=== PATIENT | male | born 1955 | race Caucasian/White ===

== ENCOUNTER 2018-11-10 13:53 | Outpatient (RCR) | payer MEDICARE, OTHER, SELFPAY ==
[2018-11-10 14:24] VITALS: BP 118/70; PULSE 74; RESP 18; TEMP 37.4; BMI 45.1
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
== END 2018-11-10 23:59 ==
LOC: WC 13:53
PROVIDERS: Family Provider Nurse Practitioner Family; PCP Nurse Practitioner Family; Visit Provider Nurse Practitioner Family
DX: S50.811A Abrasion of right forearm, initial encounter (principal); S40.021A Contusion of right upper arm, initial encounter; S47.1XXA Crushing injury of right shoulder and upper arm, initial encounter; V89.9XXA Person injured in unspecified vehicle accident, initial encounter; I10 Essential (primary) hypertension; N31.9 Neuromuscular dysfunction of bladder, unspecified; M54.16 Radiculopathy, lumbar region; I51.9 Heart disease, unspecified; N40.1 Benign prostatic hyperplasia with lower urinary tract symptoms; R33.9 Retention of urine, unspecified; F17.210 Nicotine dependence, cigarettes, uncomplicated
CPT/HCPCS: 11042; 11045; 99203; G0463

== ENCOUNTER 2018-11-11 09:39 | Observation (INO) | payer MEDICARE, SELFPAY ==
[2018-11-10 14:24] VITALS: BMI 45.1
[2018-11-11] VITALS (9 sets, daily range): BP systolic 98–120; BP diastolic 57–81; PULSE 62–82; RESP 16–18; TEMP 36.4–36.8; O2SAT 73–98; BMI 45.7
--- NOTE | 2018-11-11 09:27 | CT_ITS ---
STUDY: CT RIGHT UPPER EXTREMITY / HUMERUS REASON FOR EXAM: Male, 63 years old. Trauma to the distal right humerus with persistent hematoma. RADIATION DOSAGE (If Supplied By Facility): CTDIvol = ( 26.04 ) mGy, DLP = ( 1108.22 ) mGycm TECHNIQUE: High resolution transaxial imaging was performed without the administration of intravenous contrast material. Multiplanar coronal and sagittal images were reformatted. Individualized dose optimization techniques were used for this CT. COMPARISON: None. FINDINGS: Diffuse subcutaneous soft tissue swelling overlying the posterior aspect of the distal humerus and olecranon process. This extends medially. There is evidence of a focal hematoma measuring 6.5 cm x 3.4 cm. This extends into the medial aspect of the distal arm. There is evidence of overlying soft tissue injury and possible ulceration measuring 2.7 cm. Normal visualized muscles. Normal visualized neurovascular bundles. Normal humerus. CT/Extremity Upper without Contra IMPRESSION: Findings suggestive of a large hematoma overlying the distal humerus and olecranon process with evidence of a soft tissue laceration and/or ulceration as described. Electronically Signed: Toy Cordero, at 11:30 EDT , Service support ,
--- NOTE | 2018-11-11 09:49 | EKG12_ITS ---
Test Reason : PRE-OP Blood Pressure : / mmHG Vent. Rate : 068 BPM Atrial Rate : 068 BPM P-R Int : 170 ms QRS Dur : 124 ms QT Int : 410 ms P-R-T Axes : 036 -60 018 degrees QTc Int : 435 ms Normal sinus rhythm Left anterior fascicular block Abnormal ECG When compared with ECG of 30-DEC-2000 13:08, QRS duration has increased Confirmed by THANH ACHARYA ([id number]), order editor MARIAA THOMAS ([id number]) on 11/16/2018 2:41:40 PM Referred By: Renato White Confirmed By:VALERIA ACHARYA
--- NOTE | 2018-11-11 09:50 | RAD_ITS ---
STUDY: X-RAY CHEST REASON FOR EXAM: Male, 63 years old. Necrotic hematoma. TECHNIQUE: Single AP portable view of the chest. COMPARISON: None. FINDINGS: Mild increased linear markings at the lung bases slightly more prominent on the left side suggestive of a bibasilar atelectasis. Blunting of the left costophrenic angle. Normal size heart. Normal mediastinum and oralia. Normal visualized pulmonary arteries. There is atherosclerotic calcification of the aortic arch with tortuosity. Prior debbie and screw fixation of the mid thoracic to lower thoracic level. Normal visualized ribs, clavicles, and shoulders. There is no demonstrated abnormality of the visualized soft tissue structures of the upper abdomen. RAD/Chest 1 View (Portable) IMPRESSION: Mild increased linear markings at the lung bases slightly more prominent on the left side with blunting of the left costophrenic angle. Electronically Signed: Toy Cordero, at 15:38 EDT , Service support ,
[2018-11-11 10:23] LABS: Absolute Lymphocyte Count 1.12 X10^3/ul (0.83-4.51); Absolute Neutrophil Count 6.3 X10^3/uL (2.0-7.7); Basophil# 0.03 X10^3/uL; Basophil% 0.3 % (0-1); Eosinophil# 0.28 X10^3/uL; Eosinophils% 3.3 % (0-5); Hematocrit 41.4 % (40-54); Hemoglobin 14.1 g/dl (13.0-16.5); Lymphocyte # 1.12 X10^3/ul (4.0); Mean Corp Hgb Conc 34.1 g/gl (32-36); Mean Corpuscular Hgb 30.7 pg (27.0-32.0); Mean Corpuscular Volume 90.2 fL (80-94); Mean Platelet Vol. 10.4 fl (6.2-12.0); Monocyte# 0.82 X10^3/uL; Monocyte% 9.5 % (0-10); Neutrophil # 6.32 X10^3/uL (2.7-7.7); Neutrophil % 73.7 % (47-70); Platelet Count 187 K/mm3 (150-450); RBC Distribution Width CV 13.5 % (11.6-14.6); RBC Distribution Width SD 43.9 fl (35.1-43.9); Red Blood Count 4.59 M/mm3 (4.6-6.2); White Blood Count 8.6 K/mm3 (4.4-11.0)
[2018-11-11 10:24] LABS: POSITIVE COUNT NO; POSITIVE DIFFERENTIAL NO; POSITIVE MORPHOLOGY NO
--- NOTE | 2018-11-11 10:27 | NURSING ---
wallet, check book, and keys with knife sent to be locked up.
[2018-11-11 10:30] LABS: Prothrombin Time (Protime)PT. 12.5 SECONDS (11.7-14.9)
[2018-11-11 10:37] LABS: ALB/GLOB Ratio 1.1 RATIO (0.9-2.4); AST(SGOT) 14 U/L (15-37); Alanine Aminotransfer ALT/SGPT 18 U/L (16-61); Albumin, Serum 3.4 g/dL (3.2-5.0); Alkaline Phosphatase 98 U/L (45-117); Anion Gap 4 (5-15); BUN 21 mg/dL (7-18); BUN/Creat Ratio 16.3 RATIO (10-20); Calcium,Total 8.4 mg/dL (8.5-10.1); Chloride 112 mmol/L (98-107); Creatinine, Serum 1.29 mg/dL (0.70-1.30); EST Glomerular Filtration Rate 60 mL/min (>60); Est Glom Filt Rate - Afr Amer 72 mL/min (>60); Estimated Creatinine Clearance 50.99 ml/min; Globulin 3.1 g/dL (2.2-4.2); Glucose 96 mg/dL (74-106); Prealbumin 28.9 mg/dL (20.0-40.0); Protein, Total 6.5 g/dL (6.4-8.2); Sodium Level 144 mmol/L (136-145)
--- NOTE | 2018-11-11 10:51 | NURSING ---
pt to ct scan
[2018-11-11] MEDS: Lactated Ringers 1,000 ML 60 ML IV ×2 (11:10→18:07)
--- NOTE | 2018-11-11 11:17 | NURSING ---
pt returned to room from ct scan
--- NOTE | 2018-11-11 13:06 | NURSING ---
pt straight cath for 1000cc urine. hcg bath completed. pt left for surgery. called report to ac
--- NOTE | 2018-11-11 14:00 | THRO_PTH ---
PATIENT: ANNIE MCNEAL LOC: [facility]2 U#:[id number] AGE/SX: 63/M [place] [facility] [place]11/11/[address]: Dr. Renato White MD : 1955 BED: 1 DIS: 11/12/2018 SPEC #: [id number] RECD: 11/11/18 16:17 STATUS: JOSE DE JESUS RESam #: [id number] GEOFFREY: 11/11/18 14:[address]: Renato White DEPT: SURGICAL PATHOLOGY RECD BY: Escobar Dempsey ENTERED: 11/12/18 11:17 SP TYPE: THROMBUS OTHR DR: LIVIER De Leon Tissues: Right arm (tissue only) Procedures: Surgery Specimen Level III HEADER OPERATION: Surgical preparation right medial arm with incision and drainage PRE-OP DIAGNOSIS: Traumatic hematoma right arm TISSUE SUBMITTED: Necrotic hematoma right arm MICROSCOPIC DIAGNOSIS Necrotic hematoma: Pieces of skin and underlying tissue with focal ulceration, fat necrosis and granulation tissue reaction and blood clots, consistent with hematoma. NAIN:ayden 11/13/18 MICROSCOPIC DESCRIPTION Slides are reviewed. GROSS DESCRIPTION Received in fixative is one container labeled with the patient's name and designated necrotic hematoma. The specimen consists of multiple variable sized pieces of skin with underlying tissue that in aggregate measure 12 x 9 x 3 cm. A focal area of ulceration is noted. The deeper surface shows multiple blood clots. Also present in the container are multiple blood clots measuring in aggregate 9 x 7 x 3 cm. No mass lesion is identified. Medical Van Driver sections are submitted in two cassettes. / NAIN:ayden 11/12/18 TC:5 CPT: 42706
[2018-11-11] MEDS: levoFLOXacin IV 500 MG/100 ML BAG 100 MG IV (14:45)
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
[2018-11-11] MEDS: Gabapentin 400 MG Capsule 800 MG PO (16:29)
[2018-11-11] MEDS: Docusate Sodium 100 MG Capsule PO (21:45)
[2018-11-12 02:35] VITALS: BP 125/77; PULSE 66; RESP 16; TEMP 36.4; O2SAT 98
[2018-11-12 05:51] LABS: Hematocrit 39.3 % (40-54); Hemoglobin 13.3 g/dl (13.0-16.5); Mean Corp Hgb Conc 33.8 g/gl (32-36); Mean Corpuscular Hgb 30.6 pg (27.0-32.0); Mean Corpuscular Volume 90.3 fL (80-94); Mean Platelet Vol. 10.3 fl (6.2-12.0); Platelet Count 173 K/mm3 (150-450); RBC Distribution Width CV 13.2 % (11.6-14.6); RBC Distribution Width SD 43.7 fl (35.1-43.9); Red Blood Count 4.35 M/mm3 (4.6-6.2); White Blood Count 7.5 K/mm3 (4.4-11.0)
[2018-11-12 05:56] LABS: Scan Indicated on CBC? Y/N NO
[2018-11-12 06:09] LABS: Anion Gap 6 (5-15); BUN 21 mg/dL (7-18); BUN/Creat Ratio 19.1 RATIO (10-20); Calcium,Total 8.5 mg/dL (8.5-10.1); Chloride 110 mmol/L (98-107); EST Glomerular Filtration Rate 72 mL/min (>60); Est Glom Filt Rate - Afr Amer 87 mL/min (>60); Estimated Creatinine Clearance 59.79 ml/min; Glucose 97 mg/dL (74-106); Potassium 4.3 mmol/L (3.5-5.1); Sodium Level 143 mmol/L (136-145)
[2018-11-12 07:59] VITALS: BP 121/76; PULSE 58; RESP 18; TEMP 36.6; O2SAT 100
[2018-11-12] MEDS: Gabapentin 400 MG Capsule 800 MG PO ×2 (08:02→11:44)
[2018-11-12] MEDS: Furosemide 40 MG Tablet PO (08:02)
[2018-11-12] MEDS: Montelukast 10 MG Tablet PO (08:03)
[2018-11-12] MEDS: Finasteride 5 MG Tablet PO (08:03)
[2018-11-12] MEDS: Venlafaxine XR 37.5 MG Capsule PO (08:04)
[2018-11-12] MEDS: Tamsulosin HCl 0.4 MG Capsule PO (08:04)
[2018-11-12 09:22] VITALS: PULSE 58
[2018-11-12] MEDS: levoFLOXacin IV 500 MG/100 ML BAG 100 MG IV (09:33)
--- NOTE | 2018-11-12 09:52 | NURSING ---
This RN spoke with Caryn LEA CM regarding need for wound vac. Notified that pt will probably be here another day--- but will depend on insurance. States pt will also need HH and that will take awhile as well. Will continue to monitor.
--- NOTE | 2018-11-12 10:05 | CASEMGMT ---
JOSEPH CARTY Note: pt to dc with wound vac. Call to [facility] [phone]- his voicemail was full. Call to Franklyn Reyes form [facility] [phone] who will email prescription form. Requested clinical information to be faxed to [facility] @ [phone] and JOSEPH CARTY will expect call back from [facility] when he is able to process. Need Dr. White to sign prescription form prior to processing [facility] wound vac.
--- NOTE | 2018-11-12 10:43 | CASEMGMT ---
Addendum entered by Jan Geiger 11/12/18 11:34: [facility] PH: FX: Original Note: Addendum entered by Jan Geiger 11/12/18 11:26: Wound vac script has [facility] listed as Home care provider. This company is not [facility] with pt's insurance. Call to [facility] to notify and they have not received referral for this pt. -Insurance check for [facility] providers reviewed with pt: [facility] in [place] is preference. call to Vaishali who states they can accept pt. Referral faxed to them with start of care listed as Friday, November 14. Katja CHRISTOPHER Original Note: JSOEPH CARTY Note: On gathering clinical information, wound vac prescription form was found in front of chart completed, but not signed. Call received from [facility] who found pt's [facility] referral has already been received and insurance reviewed. Script needs signed and faxed to [facility] Pena @ [phone] White signs script. -JOSEPH CARTY checking insurance for home health which will need set up prior to dc. -Call to wound center to check if follow up appointment has been made, message with call back information left. Katja CHRISTOPHER
--- NOTE | 2018-11-12 12:00 | PCM.PN.SRG ---
- Physical Exam General: Alert, Oriented x3, Cooperative, No apparent distress HEENT: Atraumatic, PERRLA, Normocephalic Oral: Moist Mucosa Neck: Supple Lungs: Clear to auscultation, Normal air movement Cardiovascular: Regular rate, Regular Rhythm Abdomen: Bowel Sounds Present, Soft, Non Tender Extremities: Capillary Refill Less than 3 Seconds, Edema - right arm, Peripheral Pulses Normal Skin: Ulcer/ Wound - Right mediolateral arm by elbow Musculoskeletal: No Tenderness to Palpation of Joints or Extremities Neurological: Cranial nerves II-XII grossly intact, Neuro grossly intact, Muscle tone normal Psych/Mental Status: Normal Affect, Appropriate Vital Signs Temp Pulse Resp BP Pulse Ox 97.8 F 58 L 18 121/76 H 100 11/12/18 07:59 11/12/18 09:22 11/12/18 07:59 11/12/18 07:59 11/12/18 07:59 Oxygen Delivery Method Room Air Weight: 275 lb 0.003 oz Body Mass Index (BMI) 45.7 Intake and Output for Last 24 Hours 11/10/18 11/11/18 11/12/18 23:59 23:59 23:59 Intake Total 1792 / 1792 1120 / 1120 Output Total 1800 / 1800 475 / 475 Balance -8 / -8 645 / 645 Microbiology Past 72 Hours 11/11/18 15:00 Gram Stain - Final Tissue - Arm Right Laboratory Tests Past 24 Hrs 11/12/18 11/12/18 05:40 05:40 WBC 7.5 RBC 4.35 L Hgb 13.3 Hct 39.3 L MCV 90.3 MCH 30.6 MCHC 33.8 RDW 13.2 RDW Differential 43.7 Plt Count 173 MPV 10.3 Sodium 143 Potassium 4.3 Chloride 110 H Carbon Dioxide 27.0 Anion Gap 6 BUN 21 H Creatinine 1.10 Estim Creat Clear Calc 59.79 Est GFR (MDRD) Af Amer 87 Est GFR (MDRD) Non-Af 72 BUN/Creatinine Ratio 19.1 Glucose 97 Calcium 8.5 Medical Necessity - Tobacco Use Smoking Status: Current every day smoker Tobacco Use: Cigarettes Assessment/Plan All Active Problems Crushing injury of right arm (Acute) Skin necrosis (Acute) Traumatic hematoma of right upper arm (Acute) Abrasion of right forearm (Acute) Surgical preparation right posteromedial arm by elbow with incision and drainage and evacuation and excisional debridement necrotic hematoma (120 cm2). -Surgical dressing removed. -Wound looks beefy pink. No bleeding seen. -Nursing will apply wound VAC at 150 mm Hg -Pain is well controlled -Care management is arranging home health to help with wound VAC changes. -Patient will follow up Friday at the wound center -Awaiting wound cultures and pathology. -Patient currently receiving Levaquin IV. -Upon discharge his antibiotic will be changed to Clindamycin. He will also be given a probiotic to take daily. -He will be given a prescription of Percocet for pain and Valium for muscle spasm. Crushing injury of right arm -Patient has good range of motion of right arm and shoulder. He has good hand and arm strength. Abrasion of right forearm -May clean area with soap and water daily -Once he his home he can continue the collagen hydrogel to the right forearm abrasions (he has collagen hydrogel at home). Smoker Encouraged patient to stop smoking as it may have deleterious effects on wound healing.
--- NOTE | 2018-11-12 12:25 | CASEMGMT ---
RN CM Note: Script signed and faxed, call to [facility] @ [facility]. Insurance auth pending. -call to [facility], they can take pt referral with start of care Friday. Katja ALVAREZ RN ACM
--- NOTE | 2018-11-12 13:14 | CASEMGMT ---
Addendum entered by Jan Geiger 11/12/18 13:52: Fax received with rental order # [id number] for pt signature. -Serial # for home vac [id number] -Form reviewed with pt including estimated monthly cost of $230 per month rental, $25 per case and $9.75 per case for supplies for dressings and canister. -Pt signed form, copy given to him and form faxed to CLAR[employer] @ [phone]. -F/U appointment set up with [facility] for Friday, November 23, 2018 @ 1015. Pt updated and information for Home Health and appt placed on dc appointments. Original Note: Call received from Agnes [facility]FORD that home vac was approved. Form for pt signature and wound vac Serial # to be faxed. Katja BSN RN ACM
[2018-11-12 13:51] VITALS: BP 140/87; PULSE 72; RESP 18; TEMP 36.9; O2SAT 97
[2018-11-12 13:54] VITALS: PULSE 72
[2018-11-12] MEDS: Metoprolol(XL)Succ 25 MG Tablet PO (13:54)
--- NOTE | 2018-11-12 15:03 | DCINST_ITS ---
You will use the following diet at home:: No restrictions, Other - encourage nutritional supplementation with protein to help the healing process. Discharge Activity: May not drive while taking narcotic pain medications., - - elevate right arm. no heavy lifting. May shower in (days): 2 - may shower on the days the vac is changed. May resume sexual activity in: No Restrictions Weight Bearing Status: Weight bearing as tolerated Lifting Restrictions: 20 lbs. Keep extremity elevated above heart level: Right Arm Call your doctor if your incision/area has: Continuous Slow Oozing, Sudden Increased Bleeding, Increased Pain/ Swelling, Increased Redness, Foul Smelling Discharge, Swelling at the incision site Call your doctor if you observe: Fever of 101 or Higher, Coldness, Increased Pain, Shortness of breath, Chest pain, Calf discomfort, Uncontrolled pain Suture Line Care: - - vac changes three times per week at 150 mmHg continuous suction. Change Dressing in (Days):: 2 - vac changes three times per week. Cleanse incision/area with: Soap & Water - may cleanse the wound with soap and water on the days the vac is changed., - - patient may shower on the days the vac is changed. Allergies/Adverse Reactions: Allergies gadodiamide [From Omniscan] Allergy (Verified 11/11/18 09:46) Hives Penicillins [PCN] Allergy (Verified 11/11/18 09:46) Fever and skin rash Medications to take at Discharge Aspirin [Aspir 81] 1 tab PO DAILY 11/10/18 Finasteride 5 mg PO DAILY 11/10/18 Gabapentin [Neurontin] 800 mg PO TID 11/10/18 Metoprolol Succinate 25 mg PO DAILY 11/10/18 Montelukast [Singulair] 10 mg PO DAILY 11/10/18 Rosuvastatin Calcium [Crestor] 5 mg PO DAILY 11/10/18 Tamsulosin HCl [Flomax] 0.4 mg PO DAILY 11/10/18 Torsemide 20 mg PO DAILY 11/10/18 Venlafaxine HCl [Venlafaxine HCl ER] 37.5 mg PO 11/10/18 Clindamycin HCl [Cleocin] 300 mg PO TID #42 cap 11/12/18 Diazepam [Valium] 5 mg PO 4X/DAY PRN PRN 7 Days #30 tab 11/12/18 Lactobacillus Acidophilus/Fos [Acidophilus Probiotic Tablet] 1 ea PO BID #30 tab 11/12/18 Oxycodone HCl/Acetaminophen [Percocet 5/325] 1 - 2 tab PO 4X/DAY PRN PRN 7 Days #50 tab 11/12/18 The following prescriptions were given: Diazepam [Valium] 5 mg PO 4X/DAY PRN PRN 7 Days #30 tab PRN Reason: Spasms Oxycodone HCl/Acetaminophen [Percocet 5/325] 1 - 2 tab PO 4X/DAY PRN PRN 7 Days #50 tab PRN Reason: Pain Lactobacillus Acidophilus/Fos [Acidophilus Probiotic Tablet] 1 ea PO BID #30 tab Clindamycin HCl [Cleocin] 300 mg PO TID #42 cap Primary Care Physician: Ellie David NP-C [Primary Care Provider] - Test Results: Test results from this visit will be discussed in further detail at your follow- up appointment, if applicable. Please Follow Up With: Clinic,Wound - to see Isabel Vail CNP. When: Friday11/16/18. call [phone] for appt. Please Follow Up With: [facility]- they will call to set up first appt. When: Friday Proposed Discharge Date: 11/12/18
--- NOTE | 2018-11-12 15:12 | CASEMGMT ---
Addendum entered by Jan Geiger 11/12/18 16:28: Call received from [facility] that they can accept referral. Call to patient to update- message left with call back information to notify of change in Home Care for Friday. Kajta BAIG Original Note: JOSEPH CARTY Note: Call received from [facility] that they will not be able to take pt's insurance despite earlier approval of case and new C will need to be called. -JOSEPH CARTY called to John @ [facility] @ . Clinical information including insurance given. Referral faxed, awaiting approval. Will call pt regarding above when new home health is secured. [facility] PH: [phone] FX: [phone] Katja BAIG
--- NOTE | 2018-11-12 15:47 | NURSING ---
appointments sheet obtained from discharge appts- and given to pt. Notified that d/c appts were incorrect on discharge instructions- and crossed out. Notified that scheduled home health company changed mind and states that they will not accept pt insurance. JOSEPH Montoya-CM states that she will be here tomorrow and that she will follow up on this- pt notified of same and instructed to call hospital- avionics shop supervisor for wound center.
--- NOTE | 2018-11-13 10:56 | CASEMGMT ---
JOSEPH CARTY Note: Call to pt to verify he received JOSEPH CARTY message from yesterday re: Home Health change. Pt is aware- requesting to know time of RN coming. JOSEPH CARTY offered to call [facility]- per Sera, they are making schedule for tomorrow now and will call pt this afternoon. Pt given # for agency. Pt states his wound vac is functioning well at this time. No further questions. Katja ALVAREZ RN ACM
== END 2018-11-12 15:45 | disposition home health service (06) ==
PROVIDERS: Anesthesiology; Admitting Provider Surgery; Family Provider Nurse Practitioner Family; PCP Nurse Practitioner Family; Referring Provider Surgery; Visit Provider Surgery
PROC: (CPT 23930; principal; 2018-11-11 13:50)
DX: S50.01XA Contusion of right elbow, initial encounter (principal); S50.811A Abrasion of right forearm, initial encounter; S47.1XXA Crushing injury of right shoulder and upper arm, initial encounter; V48.9XXA Unspecified car occupant injured in noncollision transport accident in traffic accident, initial encounter; Y93.89 Activity, other specified; Y92.9 Unspecified place or not applicable; F17.210 Nicotine dependence, cigarettes, uncomplicated; M19.90 Unspecified osteoarthritis, unspecified site; I10 Essential (primary) hypertension; N31.9 Neuromuscular dysfunction of bladder, unspecified; N40.1 Benign prostatic hyperplasia with lower urinary tract symptoms; R33.8 Other retention of urine; I51.9 Heart disease, unspecified; Z95.5 Presence of coronary angioplasty implant and graft; Z79.899 Other long term (current) drug therapy; Z79.82 Long term (current) use of aspirin; E78.00 Pure hypercholesterolemia, unspecified
CPT/HCPCS: 23930; 36415; 71045; 73200; 80048; 80053; 84134; 85025; 85027; 85610; 87070; 87075; 87077; 87102; 87106; 87186; 87205; 87206; 88304; 93005; 96365; 96366; 96367; 99218; J7120; G0378; G0379

== ENCOUNTER 2018-11-30 10:15 | Outpatient (RCR) | payer MEDICARE, SELFPAY ==
[2018-11-11 02:00] VITALS: BP 118/70; PULSE 74; RESP 18; TEMP 37.4
[2018-11-11 13:13] VITALS: BMI 45.7
[2018-11-23 10:18] VITALS: BP 105/68; PULSE 77; RESP 18; TEMP 36.2; BMI 45.7
--- NOTE | 2018-11-23 13:06 | PCM.WC.PN ---
Type of Wound Date of Service: 11/23/18 Chief Complaint: Open surgical hematoma wound right medial arm. History of Wound: Surgery 11/11/18 - Surgical preparation right posteromedial arm by elbow with incision and drainage and evacuation and excisional debridement necrotic hematoma (120 cm2). Wound care - VAC. Operative culture - Staphylococcus epidermidis. He was placed on Cleocin. Prealbumin from 11/11/18 was 28.9. Encourage nutritional supplementation with protein to help the healing process. CT right arm from 11/11/18 showed a large hematoma overlying the distal humerus and olecranon process with evidence of a soft tissue laceration and/or ulceration.. Today he denies fever. His appetite is ok. Progress of Wound: Recent surgery 11/11/18. - Physical Exam Vital Signs Temp Pulse Resp BP 97.1 F L 77 18 105/68 11/23/18 10:18 11/23/18 10:18 11/23/18 10:18 11/23/18 10:18 Wound Measurements and Assessment WC - Nurse 1 - General Ulcer Measurement Start: 11/23/18 10:18 Freq: Status: Active Protocol: Activity Type Activity Date Activity User E-Sign Co-Sign Detail Recorded Client Recorded Date Recorded By Document 11/23/18 10:18 MW [id number] 11/23/18 10:36 MW 11/23/18 10:18 Wound Center Nurse 1 [Ulcer Assessment] #2 right lateral elbow cluster -Photo Taken No -Ulcer Cleansing soap and water #1 right inner upper arm -Combined with other wound No -Current Size (cm) - Length 12.0 -Current Size (cm) - Width 6.4 -Current Size (cm) - Depth 0.3 -Total Square Cm 76.80 -Date of Last Picture (Recall this 11/23/18 field) -Photo Taken Yes -Epithelialization Small 1-33% -Tunneling No -Undermining/Tunneling No -Circular Undermining No -Exudate Amt Medium -Exudate Type Serosanguineous -Wound Margin Flat & Intact -Granulation Amt Large (67-100%) -Granulation Quality [place] -Slough/Fibrin Yes -Necrosis Amt Small (1-33%) -Necrotic Tissue Type Adherent Slough -Structure Exposed N/A -Texture (Abigail-wound Skin Appearance) Assessed Localized Edema Scarring -Moisture (Abigail-wound Skin Appearance No Abnormality ) Assessed -Color (Baigail-wound Skin Appearance) No Abnormality Assessed -Temperature (Abigail-wound Skin No Abnormality Appearance) (Pt Warm) -Tenderness on Palpation (Abigail-wound No Skin Appearance) -Ulcer Cleansing soap and water -Foul Odor after Cleansing No -Anesthetic Used 4% Lidocaine Solution [Edema Assessment] -Lower Limb Edema Present No WC - Nurse 2 - General Ulcer CM Notes Start: 11/23/18 10:18 Freq: Status: Active Protocol: Activity Type Activity Date Activity User E-Sign Co-Sign Detail Recorded Client Recorded Date Recorded By Document 11/23/18 10:49 [id number] 11/23/18 10:51 11/23/18 10:49 Wound Center Nurse 2 [Procedure/Treatment] #2 right lateral elbow cluster -Correct Patient No -Correct Side, Site, Position No -Correct Procedure No -Procedure Performed No -Wound/Ulcer Outcome Converted #1 right inner upper arm -Time 10:49 -Correct Patient Yes -Correct Side, Site, Position Yes -Correct Procedure Yes -Procedure Performed Yes -Type of Procedure Debridement -Clinical Debridement Subcutaneous -Post Debridement Size (cm) - Length 12.0 -Post Debridement Size (cm) - Width 6.5 -Post Debridement Size (cm) - Depth 0.5 -Total Square Cm 78.00 -Wound/Ulcer Outcome Not Healed -Ulcer Cleansing Rinsed/ Irrigated with Saline -Foul Odor after Cleansing No -Bioengineered Tissue No -Bleeding Controlled with Pressure -Offloading No -Treatment Response Procedure Tolerated Well [See Physician Procedure note for Specifics] Pain Scale: 0-10 Numeric [Pain] -Is Patient Pain Free? Yes Debridement Note Post-Debridement Measurements/Treatment WC - Nurse 2 - General Ulcer CM Notes Start: 11/23/18 10:18 Freq: Status: Active Protocol: Activity Type Activity Date Activity User E-Sign Co-Sign Detail Recorded Client Recorded Date Recorded By Document 11/23/18 10:49 KP [id number] 11/23/18 10:51 11/23/18 10:49 Wound Center Nurse 2 #2 right lateral elbow cluster -Correct Patient No -Correct Side, Site, Position No -Correct Procedure No -Procedure Performed No -Wound/Ulcer Outcome Converted #1 right inner upper arm -Time 10:49 -Correct Patient Yes -Correct Side, Site, Position Yes -Correct Procedure Yes -Procedure Performed Yes -Type of Procedure Debridement -Clinical Debridement Subcutaneous -Post Debridement Size (cm) - Length 12.0 -Post Debridement Size (cm) - Width 6.5 -Post Debridement Size (cm) - Depth 0.5 -Total Square Cm 78.00 -Wound/Ulcer Outcome Not Healed -Ulcer Cleansing Rinsed/ Irrigated with Saline -Foul Odor after Cleansing No -Bioengineered Tissue No -Bleeding Controlled with Pressure -Offloading No -Treatment Response Procedure Tolerated Well Pain Scale: 0-10 Numeric Is Patient Pain Free? Yes Wound debrided: #1 Right medial arm. Laterality: Right Wound Grade/Stage: 3. Type of Debridement: Excisional debridement Anesthesia Used: 4% Lidocaine Solution Depth: Down to and including healthy tissue, in the subcutaneous layer Percentage of wound debrided: 100 Instrument Used: 5mm curette Tissue Removed: subcutaneous tissue. Severity: Fat Layer Exposed Amount of bleeding with debridement: Mild Bleeding Controlled with: Pressure Patient tolerated procedure well Assessment/Plan Assessment: 1. Traumatic necrotic hematoma right posteromedial arm by elbow. 2. Skin necrosis. 3. Open surgical hematoma wound right posteromedial arm by elbow. 4. Crushing injury right arm. 5. Abrasion right proximal lateral forearm by elbow. 6. Smoker. 7. s/p surgical preparation right posteromedial arm by elbow with incision and drainage and evacuation and excisional debridement necrotic hematoma (120 cm2). Plan: Continue the VAC. Continue Cleocin for the operative culture that showed Staphylococcus epidermidis. Prealbumin from 11/11/18 was 28.9. Encourage nutritional supplementation with protein to help the healing process. Encourage range of motion exercises to minimize stiffness. Discussed delayed closure with further operative debridement with skin grafting. He will think about it and let me know. Followup one week. Encouraged the patient to stop smoking as it may have deleterious effects on wound healing.
[2018-11-30 11:37] VITALS: BP 111/66; PULSE 63; RESP 18; TEMP 36.6; BMI 45.7
--- NOTE | 2018-11-30 20:06 | PCM.WC.PN ---
Type of Wound Date of Service: 11/30/18 Chief Complaint: Open surgical hematoma wound right posteromedial arm. History of Wound: Surgery 11/11/18 - Surgical preparation right posteromedial arm by elbow with incision and drainage and evacuation and excisional debridement necrotic hematoma (120 cm2). Wound care - VAC. Operative culture - Staphylococcus epidermidis. He was placed on Cleocin and has finished them. Prealbumin from 11/11/18 was 28.9. Encourage nutritional supplementation with protein to help the healing process. CT right arm from 11/11/18 showed a large hematoma overlying the distal humerus and olecranon process with evidence of a soft tissue laceration and/or ulceration.. Today he denies fever. His appetite is ok. Progress of Wound: Improved. - Physical Exam Vital Signs Temp Pulse Resp BP 98 F 63 18 111/66 11/30/18 11:37 11/30/18 11:37 11/30/18 11:37 11/30/18 11:37 Wound Measurements and Assessment WC - Nurse 1 - General Ulcer Measurement Start: 11/23/18 10:18 Freq: Status: Active Protocol: Activity Type Activity Date Activity User E-Sign Co-Sign Detail Recorded Client Recorded Date Recorded By Document 11/30/18 11:37 RB [id number] 11/30/18 11:39 RB 11/30/18 11:37 Wound Center Nurse 1 [Ulcer Assessment] #1 right inner upper arm -Combined with other wound No -Current Size (cm) - Length 12 -Current Size (cm) - Width 4 -Current Size (cm) - Depth 1 -Total Square Cm 48 -Tunneling No -Undermining/Tunneling Yes -Undermining/Tunneling Starts (O' 7 clock) -Undermining/Tunneling Ends (O'clock) 9 -Maximum Distance (cm) 2 -Circular Undermining No -Exudate Amt Medium -Exudate Type Serosanguineous -Wound Margin Distinct, Outline Attached -Granulation Amt Large (67-100%) -Granulation Quality Red -Slough/Fibrin Yes -Necrosis Amt Small (1-33%) -Necrotic Tissue Type Adherent Slough -Structure Exposed N/A -Texture (Abigail-wound Skin Appearance) Assessed -Moisture (Abigail-wound Skin Appearance Maceration ) -Color (Abigail-wound Skin Appearance) Assessed -Temperature (Abigail-wound Skin No Abnormality Appearance) (Pt Warm) -Tenderness on Palpation (Abigail-wound No Skin Appearance) -Ulcer Cleansing Wound Cleanser -Foul Odor after Cleansing No -Anesthetic Used 4% Lidocaine Solution - Nurse 2 - General Ulcer CM Notes Start: 11/23/18 10:18 Freq: Status: Active Protocol: Activity Type Activity Date Activity User E-Sign Co-Sign Detail Recorded Client Recorded Date Recorded By Document 11/30/18 11:53 [id number] 11/30/18 11:55 11/30/18 11:53 Wound Center Nurse 2 [Procedure/Treatment] -Time 11:54 -Correct Patient Yes -Correct Side, Site, Position Yes -Correct Procedure Yes -Procedure Performed Yes -Type of Procedure Debridement -Clinical Debridement Subcutaneous -Post Debridement Size (cm) - Length 6.5 -Post Debridement Size (cm) - Width 4.5 -Post Debridement Size (cm) - Depth 1.2 -Total Square Cm 29.25 -Wound/Ulcer Outcome Not Healed -Ulcer Cleansing Rinsed/ Irrigated with Saline -Foul Odor after Cleansing No -Bioengineered Tissue No -Bleeding Controlled with Pressure -Other undermine 9:00- 2.0cm -Offloading No -Treatment Response Procedure Tolerated Well [See Physician Procedure note for Specifics] Pain Scale: 0-10 Numeric [Pain] -Is Patient Pain Free? No Debridement Note Post-Debridement Measurements/Treatment - Nurse 2 - General Ulcer CM Notes Start: 11/23/18 10:18 Freq: Status: Active Protocol: Activity Type Activity Date Activity User E-Sign Co-Sign Detail Recorded Client Recorded Date Recorded By Document 11/23/18 10:49 [id number] 11/23/18 10:51 Document 11/30/18 11:53 [id number] 11/30/18 11:55 11/23/18 11/30/18 10:49 11:53 Wound Center Nurse 2 #2 right lateral elbow cluster -Correct Patient No -Correct Side, Site, Position No -Correct Procedure No -Procedure Performed No -Wound/Ulcer Outcome Converted #1 right inner upper arm -Time 10:49 11:54 -Correct Patient Yes Yes -Correct Side, Site, Position Yes Yes -Correct Procedure Yes Yes -Procedure Performed Yes Yes -Type of Procedure Debridement Debridement -Clinical Debridement Subcutaneous Subcutaneous -Post Debridement Size (cm) - Length 12.0 6.5 -Post Debridement Size (cm) - Width 6.5 4.5 -Post Debridement Size (cm) - Depth 0.5 1.2 -Total Square Cm 78.00 29.25 -Wound/Ulcer Outcome Not Healed Not Healed -Ulcer Cleansing Rinsed/ Rinsed/ Irrigated with Irrigated with Saline Saline -Foul Odor after Cleansing No No -Bioengineered Tissue No No -Bleeding Controlled with Pressure Pressure -Other undermine 9:00- 2.0cm -Offloading No No -Treatment Response Procedure Procedure Tolerated Well Tolerated Well Pain Scale: 0-10 Numeric Is Patient Pain Free? Yes No Wound debrided: #1 Right posteromedial arm. Laterality: Right Wound Grade/Stage: 3. Type of Debridement: Excisional debridement Anesthesia Used: 4% Lidocaine Solution Depth: Down to and including healthy tissue, in the subcutaneous layer Percentage of wound debrided: 100 Instrument Used: 5mm curette Tissue Removed: subcutaneous tissue. Severity: Fat Layer Exposed Amount of bleeding with debridement: Mild Bleeding Controlled with: Pressure Patient tolerated procedure well Assessment/Plan Assessment: 1. Traumatic necrotic hematoma right posteromedial arm by elbow. 2. Skin necrosis. 3. Open surgical hematoma wound right posteromedial arm by elbow. 4. Crushing injury right arm. 5. Abrasion right proximal lateral forearm by elbow. 6. Smoker. 7. s/p surgical preparation right posteromedial arm by elbow with incision and drainage and evacuation and excisional debridement necrotic hematoma (120 cm2). Plan: Continue the VAC. He has finished the Cleocin for the operative culture that showed Staphylococcus epidermidis. Prealbumin from 11/11/18 was 28.9. Encourage nutritional supplementation with protein to help the healing process. Encourage range of motion exercises to minimize stiffness. Discussed delayed closure with further operative debridement with skin grafting. He will think about it and let me know. Followup 2 weeks. Encouraged the patient to stop smoking as it may have deleterious effects on wound healing.
== END 2018-12-11 23:59 ==
LOC: WC 10:15
PROVIDERS: Family Provider Nurse Practitioner Family; PCP Nurse Practitioner Family; Visit Provider Nurse Practitioner Family
DX: S50.811A Abrasion of right forearm, initial encounter (principal); S40.021A Contusion of right upper arm, initial encounter; S47.1XXA Crushing injury of right shoulder and upper arm, initial encounter; V89.9XXA Person injured in unspecified vehicle accident, initial encounter; I96 Gangrene, not elsewhere classified; F17.200 Nicotine dependence, unspecified, uncomplicated
CPT/HCPCS: 11042; 11045; 97605; 97606

== ENCOUNTER 2018-12-28 10:15 | Outpatient (RCR) | payer MEDICARE, SELFPAY ==
[2018-12-12 01:14] VITALS: BP 111/66; PULSE 63; RESP 18; TEMP 36.6
[2018-12-14 11:18] VITALS: BP 132/81; PULSE 72; RESP 18; TEMP 37.2; BMI 45.7
--- NOTE | 2018-12-14 13:16 | PCM.WC.PN ---
(1) Open wound of right upper arm with complication Status: Chronic Code(s): S41.101A - Unspecified open wound of right upper arm, initial encounter (2) Crushing injury of right arm Status: Chronic Qualifiers: Encounter type: initial encounter Qualified Code(s): S47.1XXA - Crushing injury of right shoulder and upper arm, initial encounter Code(s): S47.1XXA - Crushing injury of right shoulder and upper arm, initial encounter (3) Smoker Status: Chronic Code(s): F17.200 - Nicotine dependence, unspecified, uncomplicated (4) Traumatic hematoma of right upper arm Status: Chronic Qualifiers: Encounter type: initial encounter Qualified Code(s): S40.021A - Contusion of right upper arm, initial encounter Code(s): S40.021A - Contusion of right upper arm, initial encounter Type of Wound Date of Service: 12/14/18 Chief Complaint: Open surgical hematoma wound right medial arm. History of Wound: Surgery 11/11/18 - Surgical preparation right posteromedial arm by elbow with incision and drainage and evacuation and excisional debridement necrotic hematoma (120 cm2). Wound care - VAC. Operative culture - Staphylococcus epidermidis. He was placed on Cleocin. Prealbumin from 11/11/18 was 28.9. Encourage nutritional supplementation with protein to help the healing process. CT right arm from 11/11/18 showed a large hematoma overlying the distal humerus and olecranon process with evidence of a soft tissue laceration and/or ulceration.. Today he denies fever. His appetite is ok. Progress of Wound: Improving - Physical Exam Vital Signs Temp Pulse Resp BP 98.9 F 72 18 132/81 H 12/14/18 11:18 12/14/18 11:18 12/14/18 11:18 12/14/18 11:18 General: Alert, Oriented x3, Cooperative HEENT: Atraumatic Oral: Moist Mucosa Lungs: Normal air movement Cardiovascular: Regular rate Extremities: No edema, Capillary Refill Less than 3 Seconds, Peripheral Pulses Normal Skin: Ulcer/ Wound - Right upper arm wound Wound Measurements and Assessment WC - Nurse 1 - General Ulcer Measurement Start: 12/14/18 11:18 Freq: Status: Active Protocol: Activity Type Activity Date Activity User E-Sign Co-Sign Detail Recorded Client Recorded Date Recorded By Document 12/14/18 11:18 DL [id number] 12/14/18 11:23 DL 12/14/18 11:18 Wound Center Nurse 1 [Ulcer Assessment] #2 right lateral elbow cluster -Current Size (cm) - Length 2.7 -Current Size (cm) - Width 0.6 -Current Size (cm) - Depth 0.1 -Total Square Cm 1.62 -Photo Taken No -Exudate Amt None Present -Wound Margin Distinct, Outline Attached -Granulation Amt Large (67-100%) -Granulation Quality [place] -Necrosis Amt Small (1-33%) -Necrotic Tissue Type Adherent Slough -Structure Exposed N/A -Texture (Abigail-wound Skin Appearance) Scarring -Moisture (Abigail-wound Skin Appearance No Abnormality ) -Color (Abigail-wound Skin Appearance) No Abnormality -Temperature (Abigail-wound Skin No Abnormality Appearance) (Pt Warm) -Tenderness on Palpation (Abigail-wound No Skin Appearance) -Ulcer Cleansing Rinsed/ Irrigated with Saline -Foul Odor after Cleansing No -Anesthetic Used 5% Lidocaine Gel #1 right inner upper arm -Current Size (cm) - Length 9 -Current Size (cm) - Width 2.2 -Current Size (cm) - Depth 0.1 -Total Square Cm 19.8 -Photo Taken No -Exudate Amt Small -Exudate Type Serosanguineous -Wound Margin Distinct, Outline Attached -Granulation Amt Large (67-100%) -Granulation Quality Red -Necrosis Amt Small (1-33%) -Necrotic Tissue Type Adherent Slough -Structure Exposed N/A -Texture (Abigail-wound Skin Appearance) Scarring -Moisture (Abigail-wound Skin Appearance No Abnormality ) -Color (Abigail-wound Skin Appearance) No Abnormality -Temperature (Abigail-wound Skin No Abnormality Appearance) (Pt Warm) -Tenderness on Palpation (Abigail-wound No Skin Appearance) -Ulcer Cleansing Wound Cleanser -Foul Odor after Cleansing No -Anesthetic Used 5% Lidocaine Gel WC - Nurse 2 - General Ulcer CM Notes Start: 12/14/18 11:18 Freq: Status: Active Protocol: Activity Type Activity Date Activity User E-Sign Co-Sign Detail Recorded Client Recorded Date Recorded By Document 12/14/18 11:49 AN [id number] 12/14/18 11:56 AN 12/14/18 11:49 Wound Center Nurse 2 [Procedure/Treatment] #2 right lateral elbow cluster -Time 11:53 -Correct Patient Yes -Correct Side, Site, Position Yes -Correct Procedure Yes -Procedure Performed Yes -Type of Procedure Debridement -Clinical Debridement Subcutaneous -Wound/Ulcer Outcome Not Healed -Ulcer Cleansing Rinsed/ Irrigated with Saline -Foul Odor after Cleansing No -Bioengineered Tissue No -Bleeding Controlled with Pressure -Treatment Response Procedure Tolerated Well #1 right inner upper arm -Time 11:55 -Correct Patient Yes -Correct Side, Site, Position Yes -Correct Procedure Yes -Procedure Performed Yes -Type of Procedure Debridement -Clinical Debridement Subcutaneous -Post Debridement Size (cm) - Length 10 -Post Debridement Size (cm) - Width 2.6 -Post Debridement Size (cm) - Depth 0.4 -Total Square Cm 26.0 -Wound/Ulcer Outcome Not Healed -Bleeding Controlled with Pressure -Treatment Response Procedure Tolerated Well [See Physician Procedure note for Specifics] Pain Scale: 0-10 Numeric [Pain] -Is Patient Pain Free? Yes Musculoskeletal: No Tenderness to Palpation of Joints or Extremities Neurological: Neuro grossly intact Psych/Mental Status: Normal Affect, Appropriate Debridement Note Post-Debridement Measurements/Treatment WC - Nurse 2 - General Ulcer CM Notes Start: 12/14/18 11:18 Freq: Status: Active Protocol: Activity Type Activity Date Activity User E-Sign Co-Sign Detail Recorded Client Recorded Date Recorded By Document 12/14/18 11:49 AN [id number] 12/14/18 11:56 AN 12/14/18 11:49 Wound Center Nurse 2 #2 right lateral elbow cluster -Time 11:53 -Correct Patient Yes -Correct Side, Site, Position Yes -Correct Procedure Yes -Procedure Performed Yes -Type of Procedure Debridement -Clinical Debridement Subcutaneous -Wound/Ulcer Outcome Not Healed -Ulcer Cleansing Rinsed/ Irrigated with Saline -Foul Odor after Cleansing No -Bioengineered Tissue No -Bleeding Controlled with Pressure -Treatment Response Procedure Tolerated Well #1 right inner upper arm -Time 11:55 -Correct Patient Yes -Correct Side, Site, Position Yes -Correct Procedure Yes -Procedure Performed Yes -Type of Procedure Debridement -Clinical Debridement Subcutaneous -Post Debridement Size (cm) - Length 10 -Post Debridement Size (cm) - Width 2.6 -Post Debridement Size (cm) - Depth 0.4 -Total Square Cm 26.0 -Wound/Ulcer Outcome Not Healed -Bleeding Controlled with Pressure -Treatment Response Procedure Tolerated Well Pain Scale: 0-10 Numeric Is Patient Pain Free? Yes Wound debrided: Right upper arm Type of Debridement: Excisional debridement Anesthesia Used: 4% Lidocaine Solution Depth: Down to and including healthy tissue, in the subcutaneous layer Percentage of wound debrided: 100 Instrument Used: 5mm curette Tissue Removed: Subcutaneous tissue and slough Amount of bleeding with debridement: Mild Bleeding Controlled with: Pressure Patient tolerated procedure well Assessment/Plan Assessment: 1. Traumatic necrotic hematoma right posteromedial arm by elbow. 2. Skin necrosis. 3. Open surgical hematoma wound right posteromedial arm by elbow. 4. Crushing injury right arm. 5. Abrasion right proximal lateral forearm by elbow. 6. Smoker. 7. s/p surgical preparation right posteromedial arm by elbow with incision and drainage and evacuation and excisional debridement necrotic hematoma (120 cm2). Plan: Stop the VAC. Will start Aquacel silver daily dressing changes. Continue Cleocin for the operative culture that showed Staphylococcus epidermidis. Prealbumin from 11/11/18 was 28.9. Encourage nutritional supplementation with protein to help the healing process. Encourage range of motion exercises to minimize stiffness. Discussed delayed closure with further operative debridement with skin grafting. He currently is not interested in further surgery. Followup one week. Encouraged the patient to stop smoking as it may have deleterious effects on wound healing. Code Visit [id number]
[2018-12-28 12:01] VITALS: BP 165/76; PULSE 82; RESP 18; TEMP 37.3; BMI 45.7
--- NOTE | 2018-12-28 13:07 | PCM.WC.PN ---
(1) Open wound of right upper arm with complication Status: Chronic Code(s): S41.101A - Unspecified open wound of right upper arm, initial encounter (2) Crushing injury of right arm Status: Chronic Qualifiers: Encounter type: initial encounter Qualified Code(s): S47.1XXA - Crushing injury of right shoulder and upper arm, initial encounter Code(s): S47.1XXA - Crushing injury of right shoulder and upper arm, initial encounter (3) Smoker Status: Chronic Code(s): F17.200 - Nicotine dependence, unspecified, uncomplicated (4) Traumatic hematoma of right upper arm Status: Chronic Qualifiers: Encounter type: initial encounter Qualified Code(s): S40.021A - Contusion of right upper arm, initial encounter Code(s): S40.021A - Contusion of right upper arm, initial encounter Type of Wound Date of Service: 12/28/18 Chief Complaint: Open surgical hematoma wound right medial arm. History of Wound: Surgery 11/11/18 - Surgical preparation right posteromedial arm by elbow with incision and drainage and evacuation and excisional debridement necrotic hematoma (120 cm2). Wound care -Aquacel silver daily dressing. Operative culture - Staphylococcus epidermidis. He was placed on Cleocin. Prealbumin from 11/11/18 was 28.9. Encourage nutritional supplementation with protein to help the healing process. CT right arm from 11/11/18 showed a large hematoma overlying the distal humerus and olecranon process with evidence of a soft tissue laceration and/or ulceration.. Today he denies fever. His appetite is ok. Progress of Wound: Improving - Physical Exam Vital Signs Temp Pulse Resp BP 99.1 F 82 18 165/76 H 12/28/18 12:01 12/28/18 12:01 12/28/18 12:01 12/28/18 12:01 General: Alert, Oriented x3, Cooperative HEENT: Atraumatic Oral: Moist Mucosa Lungs: Normal air movement Cardiovascular: Regular rate Extremities: No edema, Capillary Refill Less than 3 Seconds, Peripheral Pulses Normal Skin: Ulcer/ Wound - Right upper posterior arm Wound Measurements and Assessment WC - Nurse 1 - General Ulcer Measurement Start: 12/14/18 11:18 Freq: Status: Active Protocol: Activity Type Activity Date Activity User E-Sign Co-Sign Detail Recorded Client Recorded Date Recorded By Document 12/28/18 12:01 [email or web address] [id number] 12/28/18 12:10 EUGENIO 12/28/18 12:01 Wound Center Nurse 1 [Ulcer Assessment] #1 right inner upper arm -Combined with other wound No -Current Size (cm) - Length 8.0 -Current Size (cm) - Width 1.1 -Current Size (cm) - Depth 0.1 -Total Square Cm 8.80 -Photo Taken No -Epithelialization Large 67-100% -Tunneling No -Undermining/Tunneling No -Circular Undermining No -Classification - Thickness Full Thickness without Exposed Support Structure -Granulation Amt Medium (34-66%) -Granulation Quality Red -Slough/Fibrin Yes -Necrosis Amt Medium (34-66%) -Necrotic Tissue Type Adherent Slough -Structure Exposed None/Limited to Skin Breakdown -Texture (Abigail-wound Skin Appearance) Assessed Scarring -Moisture (Abigail-wound Skin Appearance Assessed ) Weeping -Color (Abigail-wound Skin Appearance) No Abnormality Assessed -Temperature (Abigail-wound Skin No Abnormality Appearance) (Pt Warm) -Tenderness on Palpation (Abigail-wound No Skin Appearance) -Ulcer Cleansing Rinsed/ Irrigated with Saline -Foul Odor after Cleansing No -Anesthetic Used 4% Lidocaine Solution WC - Nurse 2 - General Ulcer CM Notes Start: 12/14/18 11:18 Freq: Status: Active Protocol: Activity Type Activity Date Activity User E-Sign Co-Sign Detail Recorded Client Recorded Date Recorded By Document 12/28/18 12:37 KP [id number] 12/28/18 12:38 KP 12/28/18 12:37 Wound Center Nurse 2 [Procedure/Treatment] -Time 12:37 -Correct Patient Yes -Correct Side, Site, Position Yes -Correct Procedure Yes -Procedure Performed Yes -Type of Procedure Debridement -Clinical Debridement Subcutaneous -Post Debridement Size (cm) - Length 8.5 -Post Debridement Size (cm) - Width 1 -Post Debridement Size (cm) - Depth 0.2 -Total Square Cm 8.5 -Wound/Ulcer Outcome Not Healed -Ulcer Cleansing Rinsed/ Irrigated with Saline -Foul Odor after Cleansing No -Bioengineered Tissue No -Bleeding Controlled with Pressure -Offloading No -Treatment Response Procedure Tolerated Well [See Physician Procedure note for Specifics] Pain Scale: 0-10 Numeric [Pain] -Is Patient Pain Free? Yes Musculoskeletal: No Tenderness to Palpation of Joints or Extremities Neurological: Neuro grossly intact Psych/Mental Status: Normal Affect, Appropriate Debridement Note Post-Debridement Measurements/Treatment WC - Nurse 2 - General Ulcer CM Notes Start: 12/14/18 11:18 Freq: Status: Active Protocol: Activity Type Activity Date Activity User E-Sign Co-Sign Detail Recorded Client Recorded Date Recorded By Document 12/14/18 11:49 AN [id number] 12/14/18 11:56 AN Document 12/28/18 12:37 [id number] 12/28/18 12:38 JF 12/14/18 12/28/18 11:49 12:37 Wound Center Nurse 2 #2 right lateral elbow cluster -Time 11:53 -Correct Patient Yes -Correct Side, Site, Position Yes -Correct Procedure Yes -Procedure Performed Yes -Type of Procedure Debridement -Clinical Debridement Subcutaneous -Wound/Ulcer Outcome Not Healed -Ulcer Cleansing Rinsed/ Irrigated with Saline -Foul Odor after Cleansing No -Bioengineered Tissue No -Bleeding Controlled with Pressure -Treatment Response Procedure Tolerated Well #1 right inner upper arm -Time 11:55 12:37 -Correct Patient Yes Yes -Correct Side, Site, Position Yes Yes -Correct Procedure Yes Yes -Procedure Performed Yes Yes -Type of Procedure Debridement Debridement -Clinical Debridement Subcutaneous Subcutaneous -Post Debridement Size (cm) - Length 10 8.5 -Post Debridement Size (cm) - Width 2.6 1 -Post Debridement Size (cm) - Depth 0.4 0.2 -Total Square Cm 26.0 8.5 -Wound/Ulcer Outcome Not Healed Not Healed -Ulcer Cleansing Rinsed/ Irrigated with Saline -Foul Odor after Cleansing No -Bioengineered Tissue No -Bleeding Controlled with Pressure Pressure -Offloading No -Treatment Response Procedure Procedure Tolerated Well Tolerated Well Pain Scale: 0-10 Numeric Is Patient Pain Free? Yes Yes Wound debrided: Right upper arm ulcer Type of Debridement: Excisional debridement Anesthesia Used: 4% Lidocaine Solution Depth: Down to and including healthy tissue, in the subcutaneous layer Percentage of wound debrided: 100 Instrument Used: 7mm curette Tissue Removed: Subcutaneous tissue and slough Severity: Fat Layer Exposed Amount of bleeding with debridement: Mild Bleeding Controlled with: Pressure Patient tolerated procedure well Assessment/Plan Assessment: 1. Traumatic necrotic hematoma right posteromedial arm by elbow. 2. Skin necrosis. 3. Open surgical hematoma wound right posteromedial arm by elbow. 4. Crushing injury right arm. 5. Abrasion right proximal lateral forearm by elbow. 6. Smoker. 7. s/p surgical preparation right posteromedial arm by elbow with incision and drainage and evacuation and excisional debridement necrotic hematoma (120 cm2). Plan: Will continue Aquacel silver daily dressing changes. If there is too much dryness, instructed to moisten the silver with saline. Continue Cleocin for the operative culture that showed Staphylococcus epidermidis. Prealbumin from 11/11/18 was 28.9. Encourage nutritional supplementation with protein to help the healing process. Encourage range of motion exercises to minimize stiffness. Discussed delayed closure with further operative debridement with skin grafting. He currently is not interested in further surgery. Followup 2 weeks due to me but not being in town. Encouraged the patient to stop smoking as it may have deleterious effects on wound healing. Code Visit 70605
== END 2019-01-10 23:59 ==
LOC: WC 10:15
PROVIDERS: Family Provider Nurse Practitioner Family; PCP Nurse Practitioner Family; Visit Provider Nurse Practitioner Family
DX: S47.1XXA Crushing injury of right shoulder and upper arm, initial encounter (principal); S50.811A Abrasion of right forearm, initial encounter; S40.021A Contusion of right upper arm, initial encounter; V89.9XXA Person injured in unspecified vehicle accident, initial encounter; I96 Gangrene, not elsewhere classified; F17.200 Nicotine dependence, unspecified, uncomplicated
CPT/HCPCS: 11042; 11045

== ENCOUNTER 2019-02-08 09:00 | Outpatient (RCR) | payer MEDICARE, SELFPAY ==
[2019-01-11 00:50] VITALS: BP 165/76; PULSE 82; RESP 18; TEMP 37.3
[2019-01-11 10:21] VITALS: BP 147/85; PULSE 77; RESP 20; TEMP 37.5; BMI 45.7
--- NOTE | 2019-01-11 11:06 | PCM.WC.PN ---
(1) Open wound of right upper arm with complication Status: Chronic Current Visit: Yes Code(s): S41.101A - Unspecified open wound of right upper arm, initial encounter (2) Crushing injury of right arm Status: Chronic Current Visit: Yes Qualifiers: Code(s): S47.1XXA - Crushing injury of right shoulder and upper arm, initial encounter (3) Smoker Status: Chronic Current Visit: Yes Code(s): F17.200 - Nicotine dependence, unspecified, uncomplicated Type of Wound Date of Service: 01/11/19 Chief Complaint: Open surgical hematoma wound right medial arm. History of Wound: Surgery 11/11/18 - Surgical preparation right posteromedial arm by elbow with incision and drainage and evacuation and excisional debridement necrotic hematoma (120 cm2). Wound care -Aquacel silver daily dressing. Operative culture - Staphylococcus epidermidis. He was placed on Cleocin. Prealbumin from 11/11/18 was 28.9. Encourage nutritional supplementation with protein to help the healing process. CT right arm from 11/11/18 showed a large hematoma overlying the distal humerus and olecranon process with evidence of a soft tissue laceration and/or ulceration.. Today he denies fever. His appetite is ok. Progress of Wound: Improving - Physical Exam Vital Signs Temp Pulse Resp BP 99.5 F H 77 20 H 147/85 H 01/11/19 10:21 01/11/19 10:21 01/11/19 10:21 01/11/19 10:21 General: Alert, Oriented x3, Cooperative HEENT: Atraumatic Oral: Moist Mucosa Lungs: Normal air movement Cardiovascular: Regular rate Extremities: No edema, Capillary Refill Less than 3 Seconds, Peripheral Pulses Normal Skin: Ulcer/ Wound - Right upper posterior wound Wound Measurements and Assessment WC - Nurse 1 - General Ulcer Measurement Start: 01/11/19 10:21 Freq: Status: Active Protocol: Activity Type Activity Date Activity User E-Sign Co-Sign Detail Recorded Client Recorded Date Recorded By Document 01/11/19 10:21 MW [id number] 01/11/19 10:28 MW 01/11/19 10:21 Wound Center Nurse 1 [Ulcer Assessment] #1 right inner upper arm -Combined with other wound No -Current Size (cm) - Length 4.0 -Current Size (cm) - Width 0.7 -Current Size (cm) - Depth 0.1 -Total Square Cm 2.80 -Date of Last Picture (Recall this 01/11/19 field) -Photo Taken Yes -Epithelialization Medium 34-66% -Tunneling No -Undermining/Tunneling No -Circular Undermining No -Exudate Amt None Present -Exudate Type Serous -Wound Margin Flat & Intact -Granulation Amt Small (1-33%) -Granulation Quality [place] -Slough/Fibrin Yes -Necrosis Amt Medium (34-66%) -Necrotic Tissue Type Adherent Slough -Structure Exposed N/A -Texture (Abigail-wound Skin Appearance) Assessed, Scarring -Moisture (Abigail-wound Skin Appearance No Abnormality, ) Assessed -Color (Abigail-wound Skin Appearance) No Abnormality, Assessed -Temperature (Abigail-wound Skin No Abnormality Appearance) (Pt Warm) -Tenderness on Palpation (Abigail-wound No Skin Appearance) -Ulcer Cleansing Rinsed/ Irrigated with Saline -Foul Odor after Cleansing No -Anesthetic Used 5% Lidocaine Gel [Edema Assessment] -Lower Limb Edema Present No WC - Nurse 2 - General Ulcer CM Notes Start: 01/11/19 10:21 Freq: Status: Active Protocol: Activity Type Activity Date Activity User E-Sign Co-Sign Detail Recorded Client Recorded Date Recorded By Document 01/11/19 10:47 KP [id number] 01/11/19 10:49 KP 01/11/19 10:47 Wound Center Nurse 2 [Procedure/Treatment] #1 right inner upper arm -Time 10:47 -Correct Patient Yes -Correct Side, Site, Position Yes -Correct Procedure Yes -Procedure Performed Yes -Type of Procedure Debridement -Clinical Debridement Subcutaneous -Post Debridement Size (cm) - Length 4.5 -Post Debridement Size (cm) - Width 1 -Post Debridement Size (cm) - Depth 0.1 -Total Square Cm 4.5 -Wound/Ulcer Outcome Not Healed -Ulcer Cleansing Rinsed/ Irrigated with Saline -Foul Odor after Cleansing No -Bioengineered Tissue No -Bleeding Controlled with Pressure -Offloading No -Treatment Response Procedure Tolerated Well [See Physician Procedure note for Specifics] Pain Scale: 0-10 Numeric [Pain] -Is Patient Pain Free? Yes Musculoskeletal: No Tenderness to Palpation of Joints or Extremities Neurological: Neuro grossly intact Psych/Mental Status: Normal Affect, Appropriate Debridement Note Post-Debridement Measurements/Treatment WC - Nurse 2 - General Ulcer CM Notes Start: 01/11/19 10:21 Freq: Status: Active Protocol: Activity Type Activity Date Activity User E-Sign Co-Sign Detail Recorded Client Recorded Date Recorded By Document 01/11/19 10:47 KP [id number] 01/11/19 10:49 KP 01/11/19 10:47 Wound Center Nurse 2 #1 right inner upper arm -Time 10:47 -Correct Patient Yes -Correct Side, Site, Position Yes -Correct Procedure Yes -Procedure Performed Yes -Type of Procedure Debridement -Clinical Debridement Subcutaneous -Post Debridement Size (cm) - Length 4.5 -Post Debridement Size (cm) - Width 1 -Post Debridement Size (cm) - Depth 0.1 -Total Square Cm 4.5 -Wound/Ulcer Outcome Not Healed -Ulcer Cleansing Rinsed/ Irrigated with Saline -Foul Odor after Cleansing No -Bioengineered Tissue No -Bleeding Controlled with Pressure -Offloading No -Treatment Response Procedure Tolerated Well Pain Scale: 0-10 Numeric Is Patient Pain Free? Yes Wound debrided: Right posterior upper arm Laterality: Right Type of Debridement: Excisional debridement Anesthesia Used: 4% Lidocaine Solution Depth: Down to and including healthy tissue, in the subcutaneous layer Percentage of wound debrided: 100 Instrument Used: 7mm curette Tissue Removed: Subcutaneous tissue and slough Severity: Fat Layer Exposed Amount of bleeding with debridement: Mild Bleeding Controlled with: Compression and gauze Patient tolerated procedure well Assessment/Plan Active Problems Open wound of right upper arm with complication (Chronic) Crushing injury of right arm (Chronic) Smoker (Chronic) Assessment: 1. Traumatic necrotic hematoma right posteromedial arm by elbow. 2. Skin necrosis. 3. Open surgical hematoma wound right posteromedial arm by elbow. 4. Crushing injury right arm. 5. Abrasion right proximal lateral forearm by elbow. 6. Smoker. 7. s/p surgical preparation right posteromedial arm by elbow with incision and drainage and evacuation and excisional debridement necrotic hematoma (120 cm2). Plan: Will stop Aquacel silver dressing changes and switch to collagen hydrogel with adaptic daily. Continue the diflucan. Completed Cleocin for the operative culture that showed Staphylococcus epidermidis. Prealbumin from 11/11/18 was 28.9. Encourage nutritional supplementation with protein to help the healing process. Encourage range of motion exercises to minimize stiffness. Discussed delayed closure with further operative debridement with skin grafting. He currently is not interested in further surgery. Followup 1 week. Encouraged the patient to stop smoking as it may have deleterious effects on wound healing. Code Visit 06944
[2019-01-25 12:29] VITALS: BP 130/64; PULSE 63; RESP 18; TEMP 37; BMI 45.7
--- NOTE | 2019-01-25 13:17 | PN.PCM_ITS ---
(1) Open wound of right upper arm with complication Status: Chronic Current Visit: Yes Code(s): S41.101A - Unspecified open wound of right upper arm, initial encounter (2) Crushing injury of right arm Status: Chronic Current Visit: Yes Qualifiers: Code(s): S47.1XXA - Crushing injury of right shoulder and upper arm, initial encounter (3) Smoker Status: Chronic Current Visit: Yes Code(s): F17.200 - Nicotine dependence, unspecified, uncomplicated Type of Wound Date of Service: 01/25/19 Chief Complaint: Open surgical hematoma wound right medial arm. History of Wound: Surgery 11/11/18 - Surgical preparation right posteromedial arm by elbow with incision and drainage and evacuation and excisional debridement necrotic hematoma (120 cm2). Wound care -Collagen Hydrogel covered with adaptic. Operative culture - Staphylococcus epidermidis. He was placed on Cleocin. Prealbumin from 11/11/18 was 28.9. Encourage nutritional supplementation with protein to help the healing process. CT right arm from 11/11/18 showed a large hematoma overlying the distal humerus and olecranon process with evidence of a soft tissue laceration and/or ulceration.. Today he denies fever. His appetite is ok. Progress of Wound: Improving - Physical Exam Vital Signs Temp Pulse Resp BP 98.6 F 63 18 130/64 H 01/25/19 12:29 01/25/19 12:29 01/25/19 12:29 01/25/19 12:29 General: Alert, Oriented x3, Cooperative HEENT: Atraumatic Oral: Moist Mucosa Lungs: Normal air movement Cardiovascular: Regular rate Extremities: No edema, Capillary Refill Less than 3 Seconds Skin: Ulcer/ Wound - Right posterior upper arm Wound Measurements and Assessment WC - Nurse 1 - General Ulcer Measurement Start: 01/11/19 10:21 Freq: Status: Active Protocol: Activity Type Activity Date Activity User E-Sign Co-Sign Detail Recorded Client Recorded Date Recorded By Document 01/25/19 12:29 [email or web address] [id number] 01/25/19 12:39 RB 01/25/19 12:29 Wound Center Nurse 1 [Ulcer Assessment] #1 right inner upper arm -Combined with other wound No -Current Size (cm) - Length 2.1 -Current Size (cm) - Width 0.8 -Current Size (cm) - Depth 0.1 -Total Square Cm 1.68 -Tunneling No -Undermining/Tunneling No -Circular Undermining No -Exudate Amt Small -Exudate Type Serosanguineous -Wound Margin Distinct, Outline Attached -Granulation Amt Large (67-100%) -Granulation Quality [place] -Slough/Fibrin Yes -Necrosis Amt Small (1-33%) -Necrotic Tissue Type Adherent Slough -Structure Exposed N/A -Texture (Abigail-wound Skin Appearance) Assessed, Scarring -Moisture (Abigail-wound Skin Appearance Assessed ) -Color (Abigail-wound Skin Appearance) Assessed -Temperature (Abigail-wound Skin No Abnormality Appearance) (Pt Warm) -Tenderness on Palpation (Abigail-wound No Skin Appearance) -Ulcer Cleansing Wound Cleanser -Foul Odor after Cleansing No -Anesthetic Used 5% Lidocaine Gel WC - Nurse 2 - General Ulcer CM Notes Start: 01/11/19 10:21 Freq: Status: Active Protocol: Activity Type Activity Date Activity User E-Sign Co-Sign Detail Recorded Client Recorded Date Recorded By Document 01/25/19 13:09 [id number] 01/25/19 13:12 MW 01/25/19 13:09 Wound Center Nurse 2 [Procedure/Treatment] -Time 13:10 -Correct Patient Yes -Correct Side, Site, Position Yes -Correct Procedure Yes -Procedure Performed Yes -Type of Procedure Debridement -Clinical Debridement Subcutaneous -Post Debridement Size (cm) - Length 2.4 -Post Debridement Size (cm) - Width 0.5 -Post Debridement Size (cm) - Depth 0.1 -Total Square Cm 1.20 -Wound/Ulcer Outcome Not Healed -Ulcer Cleansing Rinsed/ Irrigated with Saline -Foul Odor after Cleansing No -Bioengineered Tissue No -Bleeding Controlled with Pressure -Offloading No -Treatment Response Procedure Tolerated Well [See Physician Procedure note for Specifics] Pain Scale: 0-10 Numeric [Pain] -Is Patient Pain Free? Yes Musculoskeletal: No Tenderness to Palpation of Joints or Extremities Neurological: Neuro grossly intact Psych/Mental Status: Normal Affect, Appropriate Debridement Note Post-Debridement Measurements/Treatment WC - Nurse 2 - General Ulcer CM Notes Start: 01/11/19 10:21 Freq: Status: Active Protocol: Activity Type Activity Date Activity User E-Sign Co-Sign Detail Recorded Client Recorded Date Recorded By Document 01/11/19 10:47 [id number] 01/11/19 10:49 Document 01/25/19 13:09 [id number] 01/25/19 13:12 MW 01/11/19 01/25/19 10:47 13:09 Wound Center Nurse 2 #1 right inner upper arm -Time 10:47 13:10 -Correct Patient Yes Yes -Correct Side, Site, Position Yes Yes -Correct Procedure Yes Yes -Procedure Performed Yes Yes -Type of Procedure Debridement Debridement -Clinical Debridement Subcutaneous Subcutaneous -Post Debridement Size (cm) - Length 4.5 2.4 -Post Debridement Size (cm) - Width 1 0.5 -Post Debridement Size (cm) - Depth 0.1 0.1 -Total Square Cm 4.5 1.20 -Wound/Ulcer Outcome Not Healed Not Healed -Ulcer Cleansing Rinsed/ Rinsed/ Irrigated with Irrigated with Saline Saline -Foul Odor after Cleansing No No -Bioengineered Tissue No No -Bleeding Controlled with Pressure Pressure -Offloading No No -Treatment Response Procedure Procedure Tolerated Well Tolerated Well Pain Scale: 0-10 Numeric Is Patient Pain Free? Yes Yes Wound debrided: upper posterior arm Laterality: Right Type of Debridement: Excisional debridement Anesthesia Used: 5% Lidocaine Gel Depth: Down to and including healthy tissue, in the subcutaneous layer Percentage of wound debrided: 100 Instrument Used: 3mm curette Tissue Removed: Subcutaneous tissue and slough Severity: Fat Layer Exposed Amount of bleeding with debridement: Mild Bleeding Controlled with: Compression and gauze Patient tolerated procedure well Assessment/Plan Active Problems Open wound of right upper arm with complication (Chronic) Crushing injury of right arm (Chronic) Smoker (Chronic) Assessment: 1. Traumatic necrotic hematoma right posteromedial arm by elbow. 2. Skin necrosis. 3. Open surgical hematoma wound right posteromedial arm by elbow. 4. Crushing injury right arm. 5. Abrasion right proximal lateral forearm by elbow. 6. Smoker. 7. s/p surgical preparation right posteromedial arm by elbow with incision and drainage and evacuation and excisional debridement necrotic hematoma (120 cm2). Plan: Continue collagen hydrogel with adaptic daily. He is almost healed. Completed the diflucan. Completed Cleocin for the operative culture that showed Staphylococcus epidermidis. Prealbumin from 11/11/18 was 28.9. Encourage nutritional supplementation with protein to help the healing process. Encourage range of motion exercises to minimize stiffness. Discussed delayed closure with further operative debridement with skin grafting. He currently is not interested in further surgery. Followup 1 week. Encouraged the patient to stop smoking as it may have deleterious effects on wound healing. Code Visit [id number]: [id number] [place] subq tissue 20 sq cm/<
[2019-02-08 09:21] VITALS: BP 122/77; PULSE 68; RESP 18; TEMP 37.5; BMI 45.7
--- NOTE | 2019-02-08 18:08 | PCM.WC.PN ---
Type of Wound Date of Service: 02/08/19 Chief Complaint: Nonhealing hematoma ulcer right medial arm. History of Wound: Surgery 11/11/18 - Surgical preparation right posteromedial arm by elbow with incision and drainage and evacuation and excisional debridement necrotic hematoma (120 cm2). Wound care - Collagen hydrogel. Operative culture - Staphylococcus epidermidis. He was placed on Cleocin and has finished them. Also Sharona parapsilosis and he was placed on Diflucan. Prealbumin from 11/11/18 was 28.9. Encourage nutritional supplementation with protein to help the healing process. CT right arm from 11/11/18 showed a large hematoma overlying the distal humerus and olecranon process with evidence of a soft tissue laceration and/or ulceration.. He recently fell on his right arm and the ulceration enlarged. Today he denies fever. His appetite is ok. Progress of Wound: Larger after falling on it. - Physical Exam Vital Signs Temp Pulse Resp BP 99.5 F H 68 18 122/77 H 02/08/19 09:21 02/08/19 09:21 02/08/19 09:21 02/08/19 09:21 Debridement Note Post-Debridement Measurements/Treatment WC - Nurse 2 - General Ulcer CM Notes Start: 01/11/19 10:21 Freq: Status: Active Protocol: Activity Type Activity Date Activity User E-Sign Co-Sign Detail Recorded Client Recorded Date Recorded By Document 01/11/19 10:47 [id number] 01/11/19 10:49 Document 01/25/19 13:09 MW [id number] 01/25/19 13:12 MW Document 02/08/19 10:02 MW [id number] 02/08/19 10:09 MW 01/11/19 01/25/19 02/08/19 10:47 13:09 10:02 Wound Center Nurse 2 #1 right inner upper arm -Time 10:47 13:10 10:08 -Correct Patient Yes Yes Yes -Correct Side, Site, Position Yes Yes Yes -Correct Procedure Yes Yes Yes -Procedure Performed Yes Yes Yes -Type of Procedure Debridement Debridement Debridement -Clinical Debridement Subcutaneous Subcutaneous Subcutaneous -Post Debridement Size (cm) - Length 4.5 2.4 5.8 -Post Debridement Size (cm) - Width 1 0.5 4.0 -Post Debridement Size (cm) - Depth 0.1 0.1 0.3 -Total Square Cm 4.5 1.20 23.20 -Wound/Ulcer Outcome Not Healed Not Healed Not Healed -Ulcer Cleansing Rinsed/ Rinsed/ Rinsed/ Irrigated with Irrigated with Irrigated with Saline Saline Saline -Foul Odor after Cleansing No No No -Bioengineered Tissue No No No -Bleeding Controlled with Pressure Pressure Pressure -Offloading No No No -Treatment Response Procedure Procedure Procedure Tolerated Well Tolerated Well Tolerated Well Pain Scale: 0-10 Numeric Is Patient Pain Free? Yes Yes Yes Wound debrided: #1 Right posteromedial arm. Laterality: Right Wound Grade/Stage: 3. Type of Debridement: Excisional debridement Anesthesia Used: 4% Lidocaine Solution Depth: Down to and including healthy tissue, in the subcutaneous layer Percentage of wound debrided: 100 Instrument Used: 5mm curette Tissue Removed: subcutaneous tissue. Severity: Fat Layer Exposed Amount of bleeding with debridement: Mild Bleeding Controlled with: Pressure Patient tolerated procedure well, - - A wound culture was obtained today. Assessment/Plan Assessment: 1. Traumatic necrotic hematoma right posteromedial arm by elbow. 2. Skin necrosis. 3. Nonhealing hematoma ulcer right posteromedial arm by elbow. 4. Crushing injury right arm. 5. Abrasion right proximal lateral forearm by elbow, healed. 6. Smoker. 7. s/p surgical preparation right posteromedial arm by elbow with incision and drainage and evacuation and excisional debridement necrotic hematoma (120 cm2). Plan: Begin Silver dressing changes daily. He has finished the Cleocin for the operative culture that showed Staphylococcus epidermidis. Prealbumin from 11/11/18 was 28.9. Encourage nutritional supplementation with protein to help the healing process. Encourage range of motion exercises to minimize stiffness. Discussed delayed closure with further operative debridement with skin grafting. He will think about it and let me know. Encouraged the patient to stop smoking as it may have deleterious effects on wound healing. Will apply for an advanced wound care product such as Theraskin or Epifix. Will place it on the ulcer once it is approved. A wound culture was done today. A positive culture will necessitate antibiotic therapy. Followup one week.
== END 2019-02-10 23:59 ==
LOC: WC 09:00
PROVIDERS: Family Provider Nurse Practitioner Family; PCP Nurse Practitioner Family; Referring Provider Nurse Practitioner Family; Visit Provider Nurse Practitioner Family
DX: S47.1XXA Crushing injury of right shoulder and upper arm, initial encounter (principal); S40.021A Contusion of right upper arm, initial encounter; S50.811A Abrasion of right forearm, initial encounter; V89.9XXA Person injured in unspecified vehicle accident, initial encounter; I96 Gangrene, not elsewhere classified; F17.200 Nicotine dependence, unspecified, uncomplicated
CPT/HCPCS: 11042; 11045; 87070; 87075; 87077; 87186; 87205

== ENCOUNTER 2019-03-08 09:00 | Outpatient (RCR) | payer MEDICARE, SELFPAY ==
[2019-02-11 00:49] VITALS: BP 122/77; PULSE 68; RESP 18; TEMP 37.5
[2019-02-15 09:47] VITALS: BMI 45.7
--- NOTE | 2019-02-15 10:56 | PCM.WC.PN ---
(1) Ulcer of upper extremity with fat layer exposed Status: Chronic Code(s): L98.492 - Non-pressure chronic ulcer of skin of other sites with fat layer exposed (2) Crushing injury of right arm Status: Chronic Qualifiers: Code(s): S47.1XXA - Crushing injury of right shoulder and upper arm, initial encounter (3) Smoker Status: Chronic Code(s): F17.200 - Nicotine dependence, unspecified, uncomplicated Type of Wound Date of Service: 02/15/19 Chief Complaint: Open surgical hematoma wound right medial arm. History of Wound: Surgery 11/11/18 - Surgical preparation right posteromedial arm by elbow with incision and drainage and evacuation and excisional debridement necrotic hematoma (120 cm2). Wound care -Moistened Shirin. Operative culture - Staphylococcus epidermidis. He was placed on Cleocin. Prealbumin from 11/11/18 was 28.9. Encourage nutritional supplementation with protein to help the healing process. CT right arm from 11/11/18 showed a large hematoma overlying the distal humerus and olecranon process with evidence of a soft tissue laceration and/or ulceration.. He was almost healed but he fell at home and reopened the ulcer. Today he denies fever. His appetite is ok. Progress of Wound: Improving - Physical Exam Vital Signs Temp Pulse Resp BP 99.5 F H 68 18 122/77 H 02/11/19 00:49 02/11/19 00:49 02/11/19 00:49 02/11/19 00:49 General: Alert, Oriented x3, Cooperative HEENT: Atraumatic Oral: Moist Mucosa Lungs: Normal air movement Cardiovascular: Regular rate Extremities: Capillary Refill Less than 3 Seconds, Peripheral Pulses Normal Skin: Ulcer/ Wound - Right posterior upper arm Wound Measurements and Assessment WC - Nurse 1 - General Ulcer Measurement Start: 02/15/19 09:47 Freq: Status: Active Protocol: Activity Type Activity Date Activity User E-Sign Co-Sign Detail Recorded Client Recorded Date Recorded By Document 02/15/19 09:47 DV [id number] 02/15/19 09:50 DV 02/15/19 09:47 Wound Center Nurse 1 [Ulcer Assessment] #1 right inner upper arm -Combined with other wound No -Current Size (cm) - Length 3.5 -Current Size (cm) - Width 2.8 -Current Size (cm) - Depth 0.2 -Total Square Cm 9.80 -Date of Last Picture (Recall this 02/15/19 field) -Photo Taken Yes -Epithelialization Small 1-33% -Tunneling No -Undermining/Tunneling No -Circular Undermining No -Classification - Thickness Full Thickness without Exposed Support Structure -Exudate Amt Medium -Exudate Type Yellow/Green -Wound Margin Fibrotic Scar, Thickened Scar -Granulation Amt Medium (34-66%) -Granulation Quality Red -Slough/Fibrin Yes -Necrosis Amt Medium (34-66%) -Necrotic Tissue Type Adherent Slough -Structure Exposed None/Limited to Skin Breakdown -Texture (Abigail-wound Skin Appearance) Assessed, Scarring -Moisture (Abigail-wound Skin Appearance Assessed,Dry/ ) Scaly -Color (Abigail-wound Skin Appearance) Assessed -Temperature (Abigail-wound Skin No Abnormality Appearance) (Pt Warm) -Tenderness on Palpation (Abigail-wound No Skin Appearance) -Ulcer Cleansing Rinsed/ Irrigated with Saline -Foul Odor after Cleansing No -Anesthetic Used 5% Lidocaine Gel WC - Nurse 2 - General Ulcer CM Notes Start: 02/15/19 09:47 Freq: Status: Active Protocol: Activity Type Activity Date Activity User E-Sign Co-Sign Detail Recorded Client Recorded Date Recorded By Document 02/15/19 10:23 KP [id number] 02/15/19 10:28 KP 02/15/19 10:23 Wound Center Nurse 2 [Procedure/Treatment] -Time 10:23 -Correct Patient Yes -Correct Side, Site, Position Yes -Correct Procedure Yes -Procedure Performed Yes -Type of Procedure Debridement -Clinical Debridement Subcutaneous -Post Debridement Size (cm) - Length 4.2 -Post Debridement Size (cm) - Width 4.5 -Post Debridement Size (cm) - Depth 0.3 -Total Square Cm 18.90 -Wound/Ulcer Outcome Not Healed -Ulcer Cleansing Rinsed/ Irrigated with Saline -Foul Odor after Cleansing No -Bioengineered Tissue No -Bleeding Controlled with Pressure -Offloading No -Treatment Response Procedure Tolerated Well [See Physician Procedure note for Specifics] Pain Scale: 0-10 Numeric [Pain] -Is Patient Pain Free? Yes Musculoskeletal: No Tenderness to Palpation of Joints or Extremities Neurological: Neuro grossly intact Psych/Mental Status: Normal Affect, Appropriate Debridement Note Post-Debridement Measurements/Treatment WC - Nurse 2 - General Ulcer CM Notes Start: 02/15/19 09:47 Freq: Status: Active Protocol: Activity Type Activity Date Activity User E-Sign Co-Sign Detail Recorded Client Recorded Date Recorded By Document 02/15/19 10:23 KP [id number] 02/15/19 10:28 KP 02/15/19 10:23 Wound Center Nurse 2 #1 right inner upper arm -Time 10:23 -Correct Patient Yes -Correct Side, Site, Position Yes -Correct Procedure Yes -Procedure Performed Yes -Type of Procedure Debridement -Clinical Debridement Subcutaneous -Post Debridement Size (cm) - Length 4.2 -Post Debridement Size (cm) - Width 4.5 -Post Debridement Size (cm) - Depth 0.3 -Total Square Cm 18.90 -Wound/Ulcer Outcome Not Healed -Ulcer Cleansing Rinsed/ Irrigated with Saline -Foul Odor after Cleansing No -Bioengineered Tissue No -Bleeding Controlled with Pressure -Offloading No -Treatment Response Procedure Tolerated Well Pain Scale: 0-10 Numeric Is Patient Pain Free? Yes Wound debrided: Right posterior upper arm ulcer Laterality: Right Type of Debridement: Excisional debridement Anesthesia Used: 4% Lidocaine Solution, 5% Lidocaine Gel Depth: Down to and including healthy tissue, in the subcutaneous layer Percentage of wound debrided: 100 Instrument Used: 7mm curette Tissue Removed: Subcutaneous tissue and slough Severity: Fat Layer Exposed Amount of bleeding with debridement: Mild Bleeding Controlled with: Compression and gauze Patient tolerated procedure well Assessment/Plan Assessment: 1. Ulcer of right posteromedial arm by elbow. 2. Traumatic necrotic hematoma right posteromedial arm by elbow. 3. Skin necrosis. 4. Crushing injury right arm. 5. Abrasion right proximal lateral forearm by elbow- healed. 6. Smoker. 7. s/p surgical preparation right posteromedial arm by elbow with incision and drainage and evacuation and excisional debridement necrotic hematoma (120 cm2). Plan: Will start moistened shirin to ulcer. Completed the diflucan. Completed Cleocin for the operative culture that showed Staphylococcus epidermidis. Prealbumin from 11/11/18 was 28.9. Encourage nutritional supplementation with protein to help the healing process. Culture from 02/08/18 of right posterior ulcer grew Pasteulla multocida. He was started on Cefdinir. Encourage range of motion exercises to minimize stiffness. He was almost healed until he fell and reopened the ulcer. Discussed delayed closure with further operative debridement with skin grafting. He currently is not interested in further surgery. He would benefit from an advanced wound care product to his right posterior ulcer such as Epifix to help with wound healing. Followup 1 week. Encouraged the patient to stop smoking as it may have deleterious effects on wound healing. Code Visit [id number]: [id number] Nova subq tissue 20 sq cm/<
[2019-02-22 09:51] VITALS: BP 106/63; PULSE 77; RESP 18; TEMP 36.4; BMI 45.7
--- NOTE | 2019-02-22 23:39 | PCM.WC.PN ---
Type of Wound Date of Service: 02/22/19 Chief Complaint: Nonhealing hematoma ulcer right posteromedial arm. History of Wound: Surgery 11/11/18 - Surgical preparation right posteromedial arm by elbow with incision and drainage and evacuation and excisional debridement necrotic hematoma (120 cm2). Wound care - Sophia. Operative culture - Staphylococcus epidermidis. He was placed on Cleocin and has finished them. Also Sharona parapsilosis and he was placed on Diflucan. 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 Prealbumin from 11/11/18 was 28.9. Encourage nutritional supplementation with protein to help the healing process. CT right arm from 11/11/18 showed a large hematoma overlying the distal humerus and olecranon process with evidence of a soft tissue laceration and/or ulceration.. He recently fell on his right arm and the ulceration enlarged. Today he denies fever. His appetite is ok. Progress of Wound: Improved. - Physical Exam Vital Signs Temp Pulse Resp BP 97.6 F L 77 18 106/63 02/22/19 09:51 02/22/19 09:51 02/22/19 09:51 02/22/19 09:51 Wound Measurements and Assessment WC - Nurse 1 - General Ulcer Measurement Start: 02/15/19 09:47 Freq: Status: Active Protocol: Activity Type Activity Date Activity User E-Sign Co-Sign Detail Recorded Client Recorded Date Recorded By Document 02/22/19 09:51 DL [id number] 02/22/19 09:57 DL 02/22/19 09:51 Wound Center Nurse 1 [Ulcer Assessment] #1 right inner upper arm -Current Size (cm) - Length 2.8 -Current Size (cm) - Width 3.5 -Current Size (cm) - Depth 0.1 -Total Square Cm 9.80 -Photo Taken No -Exudate Amt Small -Exudate Type Serosanguineous -Wound Margin Distinct, Outline Attached -Granulation Amt Large (67-100%) -Granulation Quality [place] -Necrosis Amt Small (1-33%) -Necrotic Tissue Type Adherent Slough -Structure Exposed N/A -Texture (Abigail-wound Skin Appearance) Scarring -Moisture (Abigail-wound Skin Appearance No Abnormality ) -Color (Abigail-wound Skin Appearance) No Abnormality -Temperature (Abigail-wound Skin No Abnormality Appearance) (Pt Warm) -Tenderness on Palpation (Abigail-wound No Skin Appearance) -Ulcer Cleansing Rinsed/ Irrigated with Saline -Foul Odor after Cleansing No -Anesthetic Used 5% Lidocaine Gel - Nurse 2 - General Ulcer CM Notes Start: 02/15/19 09:47 Freq: Status: Active Protocol: Activity Type Activity Date Activity User E-Sign Co-Sign Detail Recorded Client Recorded Date Recorded By Document 02/22/19 10:32 [id number] 02/22/19 10:34 02/22/19 10:32 Wound Center Nurse 2 [Procedure/Treatment] -Time 10:32 -Correct Patient Yes -Correct Side, Site, Position Yes -Correct Procedure Yes -Procedure Performed Yes -Type of Procedure Debridement -Clinical Debridement Subcutaneous -Post Debridement Size (cm) - Length 2.8 -Post Debridement Size (cm) - Width 3.6 -Post Debridement Size (cm) - Depth 0.2 -Total Square Cm 10.08 -Wound/Ulcer Outcome Not Healed -Ulcer Cleansing Rinsed/ Irrigated with Saline -Foul Odor after Cleansing No -Bioengineered Tissue No -Bleeding Controlled with Pressure -Offloading No -Treatment Response Procedure Tolerated Well [See Physician Procedure note for Specifics] Pain Scale: 0-10 Numeric [Pain] -Is Patient Pain Free? Yes Debridement Note Post-Debridement Measurements/Treatment - Nurse 2 - General Ulcer CM Notes Start: 02/15/19 09:47 Freq: Status: Active Protocol: Activity Type Activity Date Activity User E-Sign Co-Sign Detail Recorded Client Recorded Date Recorded By Document 02/15/19 10:23 [id number] 02/15/19 10:28 Document 02/22/19 10:32 [id number] 02/22/19 10:34 02/15/19 02/22/19 10:23 10:32 Wound Center Nurse 2 #1 right inner upper arm -Time 10:23 10:32 -Correct Patient Yes Yes -Correct Side, Site, Position Yes Yes -Correct Procedure Yes Yes -Procedure Performed Yes Yes -Type of Procedure Debridement Debridement -Clinical Debridement Subcutaneous Subcutaneous -Post Debridement Size (cm) - Length 4.2 2.8 -Post Debridement Size (cm) - Width 4.5 3.6 -Post Debridement Size (cm) - Depth 0.3 0.2 -Total Square Cm 18.90 10.08 -Wound/Ulcer Outcome Not Healed Not Healed -Ulcer Cleansing Rinsed/ Rinsed/ Irrigated with Irrigated with Saline Saline -Foul Odor after Cleansing No No -Bioengineered Tissue No No -Bleeding Controlled with Pressure Pressure -Offloading No No -Treatment Response Procedure Procedure Tolerated Well Tolerated Well Pain Scale: 0-10 Numeric Is Patient Pain Free? Yes Yes Wound debrided: #1 Right posteromedial arm. Laterality: Right Wound Grade/Stage: 3. Type of Debridement: Excisional debridement Anesthesia Used: 4% Lidocaine Solution Depth: Down to and including healthy tissue, in the subcutaneous layer Percentage of wound debrided: 100 Instrument Used: 5mm curette Tissue Removed: subcutaneous tissue. Severity: Fat Layer Exposed Amount of bleeding with debridement: Mild Bleeding Controlled with: Pressure Patient tolerated procedure well Assessment/Plan Assessment: 1. Traumatic necrotic hematoma right posteromedial arm by elbow. 2. Skin necrosis. 3. Nonhealing hematoma ulcer right posteromedial arm by elbow. 4. Crushing injury right arm. 5. Abrasion right proximal lateral forearm by elbow, healed. 6. Smoker. 7. s/p surgical preparation right posteromedial arm by elbow with incision and drainage and evacuation and excisional debridement necrotic hematoma (120 cm2). Plan: Continue Silver dressing changes daily. He has finished the Cleocin for the operative culture that showed Staphylococcus epidermidis. Prealbumin from 11/11/18 was 28.9. Encourage nutritional supplementation with protein to help the healing process. Encourage range of motion exercises to minimize stiffness. Discussed delayed closure with further operative debridement with skin grafting. He will think about it and let me know. Encouraged the patient to stop smoking as it may have deleterious effects on wound healing. Will apply for an advanced wound care product such as Epifix placental connective tissue graft. Will place it on the ulcer once it is approved. A wound culture was done 02/08/19. It showed Pasteurella multocida. He was placed on Cefdinir. Followup one week.
--- NOTE | 2019-03-01 21:35 | PCM.WC.PN ---
(1) Ulcer of upper extremity with fat layer exposed Status: Chronic Current Visit: Yes Code(s): L98.492 - Non-pressure chronic ulcer of skin of other sites with fat layer exposed (2) Crushing injury of right arm Status: Chronic Current Visit: Yes Qualifiers: Code(s): S47.1XXA - Crushing injury of right shoulder and upper arm, initial encounter (3) Smoker Status: Chronic Current Visit: Yes Code(s): F17.200 - Nicotine dependence, unspecified, uncomplicated Type of Wound Date of Service: 03/01/19 Chief Complaint: Nonhealing hematoma ulcer right posteromedial arm. History of Wound: Surgery 11/11/18 - Surgical preparation right posteromedial arm by elbow with incision and drainage and evacuation and excisional debridement necrotic hematoma (120 cm2). Wound care - Moistened Sophia, cover with adaptic. Operative culture - Staphylococcus epidermidis. He was placed on Cleocin and has finished them. Also Sharona parapsilosis and he was placed on Diflucan. 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 Prealbumin from 11/11/18 was 28.9. Encourage nutritional supplementation with protein to help the healing process. CT right arm from 11/11/18 showed a large hematoma overlying the distal humerus and olecranon process with evidence of a soft tissue laceration and/or ulceration.. He recently fell on his right arm and the ulceration enlarged. Today he denies fever. His appetite is ok. Progress of Wound: Improved. - Physical Exam Vital Signs Temp Pulse Resp BP 97.6 F L 77 18 106/63 02/22/19 09:51 02/22/19 09:51 02/22/19 09:51 02/22/19 09:51 General: Alert, Oriented x3, Cooperative HEENT: Atraumatic Oral: Moist Mucosa Lungs: Normal air movement Cardiovascular: Regular rate Abdomen: Obese Extremities: No edema, Capillary Refill Less than 3 Seconds, Peripheral Pulses Normal Skin: Ulcer/ Wound - Right posterior upper arm ulcer Wound Measurements and Assessment WC - Nurse 2 - General Ulcer CM Notes Start: 02/15/19 09:47 Freq: Status: Active Protocol: Activity Type Activity Date Activity User E-Sign Co-Sign Detail Recorded Client Recorded Date Recorded By Document 03/01/19 09:17 [id number] 03/01/19 09:20 03/01/19 09:17 Wound Center Nurse 2 [Procedure/Treatment] #1 right inner upper arm -Time 09:18 -Correct Patient Yes -Correct Side, Site, Position Yes -Correct Procedure Yes -Procedure Performed Yes -Type of Procedure Debridement -Clinical Debridement Subcutaneous -Post Debridement Size (cm) - Length 3.3 -Post Debridement Size (cm) - Width 3.3 -Post Debridement Size (cm) - Depth 0.3 -Total Square Cm 10.89 -Wound/Ulcer Outcome Not Healed -Ulcer Cleansing Rinsed/ Irrigated with Saline -Foul Odor after Cleansing No -Bioengineered Tissue No -Bleeding Controlled with Pressure -Offloading No -Treatment Response Procedure Tolerated Well [See Physician Procedure note for Specifics] Pain Scale: 0-10 Numeric [Pain] -Is Patient Pain Free? Yes Musculoskeletal: No Tenderness to Palpation of Joints or Extremities Neurological: Neuro grossly intact Psych/Mental Status: Normal Affect, Appropriate Debridement Note Post-Debridement Measurements/Treatment WC - Nurse 2 - General Ulcer CM Notes Start: 02/15/19 09:47 Freq: Status: Active Protocol: Activity Type Activity Date Activity User E-Sign Co-Sign Detail Recorded Client Recorded Date Recorded By Document 02/15/19 10:23 [id number] 02/15/19 10:28 Document 02/22/19 10:32 [email or web address] 02/22/19 10:34 Document 03/01/19 09:17 [id number] 03/01/19 09:20 02/15/19 02/22/19 03/01/19 10:23 10:32 09:17 Wound Center Nurse 2 #1 right inner upper arm -Time 10:23 10:32 09:18 -Correct Patient Yes Yes Yes -Correct Side, Site, Position Yes Yes Yes -Correct Procedure Yes Yes Yes -Procedure Performed Yes Yes Yes -Type of Procedure Debridement Debridement Debridement -Clinical Debridement Subcutaneous Subcutaneous Subcutaneous -Post Debridement Size (cm) - Length 4.2 2.8 3.3 -Post Debridement Size (cm) - Width 4.5 3.6 3.3 -Post Debridement Size (cm) - Depth 0.3 0.2 0.3 -Total Square Cm 18.90 10.08 10.89 -Wound/Ulcer Outcome Not Healed Not Healed Not Healed -Ulcer Cleansing Rinsed/ Rinsed/ Rinsed/ Irrigated with Irrigated with Irrigated with Saline Saline Saline -Foul Odor after Cleansing No No No -Bioengineered Tissue No No No -Bleeding Controlled with Pressure Pressure Pressure -Offloading No No No -Treatment Response Procedure Procedure Procedure Tolerated Well Tolerated Well Tolerated Well Pain Scale: 0-10 Numeric Is Patient Pain Free? Yes Yes Yes Wound debrided: upper posterior arm Laterality: Right Type of Debridement: Excisional debridement Anesthesia Used: 4% Lidocaine Solution, 5% Lidocaine Gel Depth: Down to and including healthy tissue, in the subcutaneous layer Percentage of wound debrided: 100 Instrument Used: 7mm curette Tissue Removed: Subcutaneous tissue and slough Severity: Fat Layer Exposed Amount of bleeding with debridement: Mild Bleeding Controlled with: Pressure, Compression and gauze Patient tolerated procedure well Assessment/Plan Active Problems Ulcer of upper extremity with fat layer exposed (Chronic) Crushing injury of right arm (Chronic) Smoker (Chronic) Assessment: 1. Traumatic necrotic hematoma right posteromedial arm by elbow. 2. Skin necrosis. 3. Nonhealing hematoma ulcer right posteromedial arm by elbow. 4. Crushing injury right arm. 5. Abrasion right proximal lateral forearm by elbow, healed. 6. Smoker. 7. s/p surgical preparation right posteromedial arm by elbow with incision and drainage and evacuation and excisional debridement necrotic hematoma (120 cm2). Plan: Wound care is moistened Sophia with adaptic daily. He has finished the Cleocin for the operative culture that showed Staphylococcus epidermidis. Prealbumin from 11/11/18 was 28.9. Encourage nutritional supplementation with protein to help the healing process. Encourage range of motion exercises to minimize stiffness. Discussed delayed closure with further operative debridement with skin grafting. He will think about it and let me know. Encouraged the patient to stop smoking as it may have deleterious effects on wound healing. Will apply for an advanced wound care product such as Epifix placental connective tissue graft. Will place it on the ulcer once it is approved. Continue to wait for approval. A wound culture was done 02/08/19. It showed Pasteurella multocida. He was placed on Cefdinir. Followup one week. Code Visit 111xxx-[id number]: [id number] Nova subq tissue 20 sq cm/<
[2019-03-08 09:03] VITALS: BP 145/82; PULSE 64; RESP 16; TEMP 36.3; BMI 45.7
--- NOTE | 2019-03-08 17:03 | PN.PCM_ITS ---
(1) Ulcer of upper extremity with fat layer exposed Status: Chronic Code(s): L98.492 - Non-pressure chronic ulcer of skin of other sites with fat layer exposed (2) Crushing injury of right arm Status: Chronic Qualifiers: Code(s): S47.1XXA - Crushing injury of right shoulder and upper arm, initial encounter (3) Smoker Status: Chronic Code(s): F17.200 - Nicotine dependence, unspecified, uncomplicated Type of Wound Date of Service: 03/09/19 Chief Complaint: Nonhealing hematoma ulcer right posteromedial arm. History of Wound: Surgery 11/11/18 - Surgical preparation right posteromedial arm by elbow with incision and drainage and evacuation and excisional debridement necrotic hematoma (120 cm2). Wound care - Moistened Sophia, cover with adaptic. Operative culture - Staphylococcus epidermidis. He was placed on Cleocin and has finished them. Also Sharona parapsilosis and he was placed on Diflucan. 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 Prealbumin from 11/11/18 was 28.9. Encourage nutritional supplementation with protein to help the healing process. CT right arm from 11/11/18 showed a large hematoma overlying the distal humerus and olecranon process with evidence of a soft tissue laceration and/or ulceration.. He rec ently fell on his right arm and the ulceration enlarged. Today he denies fever. His appetite is ok. Progress of Wound: Improved. - Physical Exam Vital Signs Temp Pulse Resp BP 97.3 F L 64 16 145/82 H 03/08/19 09:03 03/08/19 09:03 03/08/19 09:03 03/08/19 09:03 General: Alert, Oriented x3, Cooperative HEENT: Atraumatic Oral: Moist Mucosa Lungs: Normal air movement Cardiovascular: Regular rate Extremities: Capillary Refill Less than 3 Seconds, Peripheral Pulses Normal Skin: Ulcer/ Wound - Right posterior upper arm Wound Measurements and Assessment WC - Nurse 1 - General Ulcer Measurement Start: 02/15/19 09:47 Freq: Status: Active Protocol: Activity Type Activity Date Activity User E-Sign Co-Sign Detail Recorded Client Recorded Date Recorded By Document 03/08/19 09:03 MW [id number] 03/08/19 09:07 MW 03/08/19 09:03 Wound Center Nurse 1 [Ulcer Assessment] #1 right inner upper arm -Combined with other wound No -Current Size (cm) - Length 3.0 -Current Size (cm) - Width 2.5 -Current Size (cm) - Depth 0.1 -Total Square Cm 7.50 -Photo Taken No -Epithelialization Medium 34-66% -Tunneling No -Undermining/Tunneling No -Circular Undermining No -Exudate Amt Small -Exudate Type Serosanguineous -Wound Margin Flat & Intact -Granulation Amt Large (67-100%) -Granulation Quality [place] -Slough/Fibrin Yes -Necrotic Tissue Type Adherent Slough -Structure Exposed N/A -Texture (Abigail-wound Skin Appearance) Assessed, Scarring -Moisture (Abigail-wound Skin Appearance Assessed,Dry/ ) Scaly -Color (Abigail-wound Skin Appearance) Assessed -Temperature (Abigail-wound Skin No Abnormality Appearance) (Pt Warm) -Tenderness on Palpation (Abigail-wound No Skin Appearance) -Ulcer Cleansing Rinsed/ Irrigated with Saline -Foul Odor after Cleansing No -Anesthetic Used 5% Lidocaine Gel [Edema Assessment] -Lower Limb Edema Present No - Nurse 2 - General Ulcer CM Notes Start: 02/15/19 09:47 Freq: Status: Active Protocol: Activity Type Activity Date Activity User E-Sign Co-Sign Detail Recorded Client Recorded Date Recorded By Document 03/08/19 09:26 KP [id number] 03/08/19 09:27 KP 03/08/19 09:26 Wound Center Nurse 2 [Procedure/Treatment] #1 right inner upper arm -Time 09:27 -Correct Patient Yes -Correct Side, Site, Position Yes -Correct Procedure Yes -Procedure Performed Yes -Type of Procedure Debridement -Clinical Debridement Subcutaneous -Post Debridement Size (cm) - Length 3.0 -Post Debridement Size (cm) - Width 2.7 -Post Debridement Size (cm) - Depth 0.3 -Total Square Cm 8.10 -Wound/Ulcer Outcome Not Healed -Ulcer Cleansing Rinsed/ Irrigated with Saline -Foul Odor after Cleansing No -Bioengineered Tissue No -Bleeding Controlled with Pressure -Offloading No -Treatment Response Procedure Tolerated Well [See Physician Procedure note for Specifics] Pain Scale: 0-10 Numeric [Pain] -Is Patient Pain Free? Yes Musculoskeletal: No Tenderness to Palpation of Joints or Extremities Neurological: Neuro grossly intact Psych/Mental Status: Normal Affect, Appropriate Debridement Note Post-Debridement Measurements/Treatment WC - Nurse 2 - General Ulcer CM Notes Start: 02/15/19 09:47 Freq: Status: Active Protocol: Activity Type Activity Date Activity User E-Sign Co-Sign Detail Recorded Client Recorded Date Recorded By Document 02/15/19 10:23 [id number] 02/15/19 10:28 Document 02/22/19 10:32 [id number] 02/22/19 10:34 Document 03/01/19 09:17 [id number] 03/01/19 09:20 Document 03/08/19 09:26 [id number] 03/08/19 09:27 02/15/19 02/22/19 03/01/19 10:23 10:32 09:17 Wound Center Nurse 2 #1 right inner upper arm -Time 10:23 10:32 09:18 -Correct Patient Yes Yes Yes -Correct Side, Site, Position Yes Yes Yes -Correct Procedure Yes Yes Yes -Procedure Performed Yes Yes Yes -Type of Procedure Debridement Debridement Debridement -Clinical Debridement Subcutaneous Subcutaneous Subcutaneous -Post Debridement Size (cm) - Length 4.2 2.8 3.3 -Post Debridement Size (cm) - Width 4.5 3.6 3.3 -Post Debridement Size (cm) - Depth 0.3 0.2 0.3 -Total Square Cm 18.90 10.08 10.89 -Wound/Ulcer Outcome Not Healed Not Healed Not Healed -Ulcer Cleansing Rinsed/ Rinsed/ Rinsed/ Irrigated with Irrigated with Irrigated with Saline Saline Saline -Foul Odor after Cleansing No No No -Bioengineered Tissue No No No -Bleeding Controlled with Pressure Pressure Pressure -Offloading No No No -Treatment Response Procedure Procedure Procedure Tolerated Well Tolerated Well Tolerated Well Pain Scale: 0-10 Numeric Is Patient Pain Free? Yes Yes Yes 03/08/19 09:26 Wound Center Nurse 2 #1 right inner upper arm -Time 09:27 -Correct Patient Yes -Correct Side, Site, Position Yes -Correct Procedure Yes -Procedure Performed Yes -Type of Procedure Debridement -Clinical Debridement Subcutaneous -Post Debridement Size (cm) - Length 3.0 -Post Debridement Size (cm) - Width 2.7 -Post Debridement Size (cm) - Depth 0.3 -Total Square Cm 8.10 -Wound/Ulcer Outcome Not Healed -Ulcer Cleansing Rinsed/ Irrigated with Saline -Foul Odor after Cleansing No -Bioengineered Tissue No -Bleeding Controlled with Pressure -Offloading No -Treatment Response Procedure Tolerated Well Pain Scale: 0-10 Numeric Is Patient Pain Free? Yes Wound debrided: Right upper posterior arm Laterality: Right Type of Debridement: Excisional debridement Anesthesia Used: 4% Lidocaine Solution, 5% Lidocaine Gel Depth: Down to and including healthy tissue Percentage of wound debrided: 100 Instrument Used: 7mm curette Tissue Removed: Subcutaneous tissue and slough Severity: Fat Layer Exposed Amount of bleeding with debridement: Mild Bleeding Controlled with: Compression and gauze Patient tolerated procedure well Assessment/Plan Assessment: 1. Traumatic necrotic hematoma right posteromedial arm by elbow. 2. Skin necrosis. 3. Nonhealing hematoma ulcer right posteromedial arm by elbow. 4. Crushing injury right arm. 5. Abrasion right proximal lateral forearm by elbow, healed. 6. Smoker. 7. s/p surgical preparation right posteromedial arm by elbow with incision and drainage and evacuation and excisional debridement necrotic hematoma (120 cm2). Plan: Wound care is moistened Sophia with adaptic daily. He has finished the Cleocin for the operative culture that showed Staphylococcus epidermidis. Prealbumin from 11/11/18 was 28.9. Encourage nutritional supplementation with protein to help the healing process. Encourage range of motion exercises to minimize stiffness. Discussed delayed closure with further operative debridement with skin grafting. He will think about it and let me know. Encouraged the patient to stop smoking as it may have deleterious effects on wound healing. He was denied Epifix by his insurance company because it was not medically necessary. A wound culture was done 02/08/19. It showed Pasteurella multocida. He was placed on Cefdinir. He does have home health 1-2 times per week and his sister helps him change his dressing when home health is not available. Followup two weeks due to the holiday next week. Code Visit 111xxx-113xx: [id number] Nova subq tissue 20 sq cm/<
== END 2019-03-13 23:59 ==
LOC: WC 09:00
PROVIDERS: Family Provider Nurse Practitioner Family; PCP Nurse Practitioner Family; Referring Provider Nurse Practitioner Family; Visit Provider Nurse Practitioner Family
DX: S47.1XXA Crushing injury of right shoulder and upper arm, initial encounter (principal); S40.021A Contusion of right upper arm, initial encounter; S50.811A Abrasion of right forearm, initial encounter; V89.9XXA Person injured in unspecified vehicle accident, initial encounter; I96 Gangrene, not elsewhere classified; F17.200 Nicotine dependence, unspecified, uncomplicated
CPT/HCPCS: 11042

== ENCOUNTER 2019-04-12 10:00 | Outpatient (RCR) | payer MEDICARE, SELFPAY ==
[2019-03-14 00:41] VITALS: BP 145/82; PULSE 64; RESP 16; TEMP 36.3
[2019-03-29 10:19] VITALS: BP 98/65; PULSE 80; RESP 18; TEMP 36.6; BMI 45.7
--- NOTE | 2019-03-29 13:29 | PCM.WC.PN ---
(1) Ulcer of upper extremity with fat layer exposed Status: Chronic Code(s): L98.492 - Non-pressure chronic ulcer of skin of other sites with fat layer exposed (2) Smoker Status: Chronic Code(s): F17.200 - Nicotine dependence, unspecified, uncomplicated Type of Wound Date of Service: 03/29/19 Chief Complaint: Nonhealing hematoma ulcer right posteromedial arm. History of Wound: Surgery 11/11/18 - Surgical preparation right posteromedial arm by elbow with incision and drainage and evacuation and excisional debridement necrotic hematoma (120 cm2). Wound care - Moistened Sophia, cover with adaptic. Encouraged massage of the healed edges to help soften scarring and help with lymphatic drainage. Operative culture - Staphylococcus epidermidis. He was placed on Cleocin and has finished them. Also Sharona parapsilosis and he was placed on Diflucan. 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 Prealbumin from 11/11/18 was 28.9. Encourage nutritional supplementation with protein to help the healing process. CT right arm from 11/11/18 showed a large hematoma overlying the distal humerus and olecranon process with evidence of a soft tissue laceration and/or ulceration.. He recently fell on his right arm and the ulceration enlarged. Today he denies fever. His appetite is ok. Progress of Wound: Improved. - Physical Exam Vital Signs Temp Pulse Resp BP 97.8 F 80 18 98/65 03/29/19 10:19 03/29/19 10:19 03/29/19 10:19 03/29/19 10:19 General: Alert, Oriented x3, Cooperative HEENT: Atraumatic Oral: Moist Mucosa Lungs: Normal air movement Cardiovascular: Regular rate Extremities: No edema, Peripheral Pulses Normal Skin: Ulcer/ Wound - Right posterior upper arm ulcer Wound Measurements and Assessment WC - Nurse 1 - General Ulcer Measurement Start: 03/29/19 10:14 Freq: Status: Active Protocol: Activity Type Activity Date Activity User E-Sign Co-Sign Detail Recorded Client Recorded Date Recorded By Document 03/29/19 10:19 [email or web address] [id number] 03/29/19 10:21 RB 03/29/19 10:19 Wound Center Nurse 1 [Ulcer Assessment] #1 right inner upper arm -Combined with other wound No -Current Size (cm) - Length 2 -Current Size (cm) - Width 2.1 -Current Size (cm) - Depth 0.1 -Total Square Cm 4.2 -Photo Taken No -Tunneling No -Undermining/Tunneling No -Circular Undermining No -Exudate Amt Small -Exudate Type Serosanguineous -Wound Margin Flat & Intact -Granulation Amt Medium (34-66%) -Granulation Quality [place] -Slough/Fibrin Yes -Necrosis Amt Small (1-33%) -Structure Exposed N/A -Texture (Abigail-wound Skin Appearance) Assessed, Scarring -Moisture (Abigail-wound Skin Appearance Assessed ) -Color (Abigail-wound Skin Appearance) Assessed -Temperature (Abigail-wound Skin No Abnormality Appearance) (Pt Warm) -Tenderness on Palpation (Abigail-wound No Skin Appearance) -Ulcer Cleansing Wound Cleanser -Foul Odor after Cleansing No -Anesthetic Used 5% Lidocaine Gel WC - Nurse 2 - General Ulcer CM Notes Start: 03/29/19 10:14 Freq: Status: Active Protocol: Activity Type Activity Date Activity User E-Sign Co-Sign Detail Recorded Client Recorded Date Recorded By Document 03/29/19 10:54 [id number] 03/29/19 10:57 03/29/19 10:54 Wound Center Nurse 2 [Procedure/Treatment] -Time 10:54 -Correct Patient Yes -Correct Side, Site, Position Yes -Correct Procedure Yes -Procedure Performed Yes -Type of Procedure Debridement -Clinical Debridement Subcutaneous -Post Debridement Size (cm) - Length 2.0 -Post Debridement Size (cm) - Width 1.7 -Post Debridement Size (cm) - Depth 0.2 -Total Square Cm 3.40 -Wound/Ulcer Outcome Not Healed -Ulcer Cleansing Rinsed/ Irrigated with Saline -Foul Odor after Cleansing No -Bioengineered Tissue No -Bleeding Controlled with Pressure -Offloading No -Treatment Response Procedure Tolerated Well [See Physician Procedure note for Specifics] Pain Scale: 0-10 Numeric [Pain] -Is Patient Pain Free? Yes Musculoskeletal: No Tenderness to Palpation of Joints or Extremities Neurological: Neuro grossly intact Psych/Mental Status: Normal Affect, Appropriate Debridement Note Post-Debridement Measurements/Treatment WC - Nurse 2 - General Ulcer CM Notes Start: 03/29/19 10:14 Freq: Status: Active Protocol: Activity Type Activity Date Activity User E-Sign Co-Sign Detail Recorded Client Recorded Date Recorded By Document 03/29/19 10:54 [id number] 03/29/19 10:57 KP 03/29/19 10:54 Wound Center Nurse 2 #1 right inner upper arm -Time 10:54 -Correct Patient Yes -Correct Side, Site, Position Yes -Correct Procedure Yes -Procedure Performed Yes -Type of Procedure Debridement -Clinical Debridement Subcutaneous -Post Debridement Size (cm) - Length 2.0 -Post Debridement Size (cm) - Width 1.7 -Post Debridement Size (cm) - Depth 0.2 -Total Square Cm 3.40 -Wound/Ulcer Outcome Not Healed -Ulcer Cleansing Rinsed/ Irrigated with Saline -Foul Odor after Cleansing No -Bioengineered Tissue No -Bleeding Controlled with Pressure -Offloading No -Treatment Response Procedure Tolerated Well Pain Scale: 0-10 Numeric Is Patient Pain Free? Yes Wound debrided: upper posterior arm Laterality: Right Type of Debridement: Excisional debridement Anesthesia Used: 4% Lidocaine Solution, 5% Lidocaine Gel Depth: Down to and including healthy tissue, in the subcutaneous layer Percentage of wound debrided: 100 Instrument Used: 5mm curette Tissue Removed: Subcutaneous tissue and slough Severity: Fat Layer Exposed Amount of bleeding with debridement: Mild Bleeding Controlled with: Pressure, Compression and gauze Patient tolerated procedure well Assessment/Plan Assessment: 1. Ulcer of right posteromedial arm by elbow. 2. Traumatic necrotic hematoma right posteromedial arm by elbow. 3. Skin necrosis. 4. Crushing injury right arm. 5. Abrasion right proximal lateral forearm by elbow- healed. 6. Smoker. 7. s/p surgical preparation right posteromedial arm by elbow with incision and drainage and evacuation and excisional debridement necrotic hematoma (120 cm2). Plan: Wound care is moistened Sophia with adaptic daily. Encouraged him to massage the healed edges to help soften the scarring. He has finished the Cleocin for the operative culture that showed Staphylococcus epidermidis. Prealbumin from 11/11/18 was 28.9. Encourage nutritional supplementation with protein to help the healing process. Encourage range of motion exercises to minimize stiffness. Discussed delayed closure with further operative debridement with skin grafting. He will think about it and let me know. Encouraged the patient to stop smoking as it may have deleterious effects on wound healing. He was denied Epifix by his insurance company because it was not medically necessary. A wound culture was done 02/08/19. It showed Pasteurella multocida. He was placed on Cefdinir. He does have home health 1-2 times per week and his sister helps him change his dressing when home health is not available. Followup two weeks. Code Visit 111xxx-113xx: [id number] Nova subq tissue 20 sq cm/<
[2019-04-12 10:21] VITALS: BP 105/79; PULSE 84; RESP 16; TEMP 36; BMI 45.7
--- NOTE | 2019-04-12 12:45 | PN.PCM_ITS ---
(1) Ulcer of upper extremity with fat layer exposed Status: Chronic Code(s): L98.492 - Non-pressure chronic ulcer of skin of other sites with fat layer exposed (2) Smoker Status: Chronic Code(s): F17.200 - Nicotine dependence, unspecified, uncomplicated Type of Wound Date of Service: 04/12/19 Chief Complaint: Nonhealing hematoma ulcer right posteromedial arm. History of Wound: Surgery 11/11/18 - Surgical preparation right posteromedial arm by elbow with incision and drainage and evacuation and excisional debridement necrotic hematoma (120 cm2). Wound care -Collagen hydrogel covered by adaptic. Encouraged massage of the healed edges to help soften scarring and help with lymphatic drainage. Operative culture - Staphylococcus epidermidis. He was placed on Cleocin and has finished them. Also Sharona parapsilosis and he was placed on Diflucan. 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 Prealbumin from 11/11/18 was 28.9. Encourage nutritional supplementation with protein to help the healing process. CT right arm from 11/11/18 showed a large hematoma overlying the distal humerus and olecranon process with evidence of a soft tissue laceration and/or ulceration.. He recently fell on his right arm and the ulceration enlarged. Today he denies fever. His appetite is ok. Progress of Wound: Improved. - Physical Exam Vital Signs Temp Pulse Resp BP 96.8 F L 84 16 105/79 04/12/19 10:21 04/12/19 10:21 04/12/19 10:21 04/12/19 10:21 General: Alert, Oriented x3, Cooperative HEENT: Atraumatic Oral: Moist Mucosa Lungs: Normal air movement Cardiovascular: Regular rate Extremities: No edema, Capillary Refill Less than 3 Seconds Skin: Ulcer/ Wound - Right posterior upper arm Wound Measurements and Assessment WC - Nurse 1 - General Ulcer Measurement Start: 03/29/19 10:14 Freq: Status: Active Protocol: Activity Type Activity Date Activity User E-Sign Co-Sign Detail Recorded Client Recorded Date Recorded By Document 04/12/19 10:21 [facility] [id number] 04/12/19 10:25 [facility] 04/12/19 10:21 Wound Center Nurse 1 [Ulcer Assessment] #1 right inner upper arm -Combined with other wound No -Current Size (cm) - Length 4.3 -Current Size (cm) - Width 2.5 -Current Size (cm) - Depth 0.1 -Total Square Cm 10.75 -Photo Taken No -Epithelialization None Present -Tunneling No -Undermining/Tunneling No -Circular Undermining No -Exudate Amt Small -Exudate Type Serosanguineous -Wound Margin Distinct, Outline Attached -Granulation Amt None Present (0 %) -Slough/Fibrin Yes -Necrosis Amt Large (67-100%) -Necrotic Tissue Type Adherent Slough -Texture (Abigail-wound Skin Appearance) Assessed, Scarring -Moisture (Abigail-wound Skin Appearance Assessed,Dry/ ) Scaly -Color (Abigail-wound Skin Appearance) Assessed -Temperature (Abigail-wound Skin No Abnormality Appearance) (Pt Warm) -Tenderness on Palpation (Abigail-wound No Skin Appearance) -Ulcer Cleansing Rinsed/ Irrigated with Saline -Foul Odor after Cleansing No -Anesthetic Used 4% Lidocaine Solution WC - Nurse 2 - General Ulcer CM Notes Start: 03/29/19 10:14 Freq: Status: Active Protocol: Activity Type Activity Date Activity User E-Sign Co-Sign Detail Recorded Client Recorded Date Recorded By Document 04/12/19 11:04 KP [id number] 04/12/19 11:06 KP 04/12/19 11:04 Wound Center Nurse 2 [Procedure/Treatment] -Time 11:04 -Correct Patient Yes -Correct Side, Site, Position Yes -Correct Procedure Yes -Procedure Performed Yes -Type of Procedure Debridement -Clinical Debridement Subcutaneous -Post Debridement Size (cm) - Length 2.0 -Post Debridement Size (cm) - Width 1.3 -Post Debridement Size (cm) - Depth 0.1 -Total Square Cm 2.60 -Wound/Ulcer Outcome Not Healed -Ulcer Cleansing Rinsed/ Irrigated with Saline -Foul Odor after Cleansing No -Bioengineered Tissue No -Bleeding Controlled with Pressure -Offloading No -Treatment Response Procedure Tolerated Well [See Physician Procedure note for Specifics] Pain Scale: 0-10 Numeric [Pain] -Is Patient Pain Free? Yes Musculoskeletal: No Tenderness to Palpation of Joints or Extremities Neurological: Deep Tendon Reflexes 2+/4 and Symmetrical Psych/Mental Status: Normal Affect, Appropriate Debridement Note Post-Debridement Measurements/Treatment WC - Nurse 2 - General Ulcer CM Notes Start: 03/29/19 10:14 Freq: Status: Active Protocol: Activity Type Activity Date Activity User E-Sign Co-Sign Detail Recorded Client Recorded Date Recorded By Document 03/29/19 10:54 [id number] 03/29/19 10:57 Document 04/12/19 11:04 [id number] 04/12/19 11:06 03/29/19 04/12/19 10:54 11:04 Wound Center Nurse 2 #1 right inner upper arm -Time 10:54 11:04 -Correct Patient Yes Yes -Correct Side, Site, Position Yes Yes -Correct Procedure Yes Yes -Procedure Performed Yes Yes -Type of Procedure Debridement Debridement -Clinical Debridement Subcutaneous Subcutaneous -Post Debridement Size (cm) - Length 2.0 2.0 -Post Debridement Size (cm) - Width 1.7 1.3 -Post Debridement Size (cm) - Depth 0.2 0.1 -Total Square Cm 3.40 2.60 -Wound/Ulcer Outcome Not Healed Not Healed -Ulcer Cleansing Rinsed/ Rinsed/ Irrigated with Irrigated with Saline Saline -Foul Odor after Cleansing No No -Bioengineered Tissue No No -Bleeding Controlled with Pressure Pressure -Offloading No No -Treatment Response Procedure Procedure Tolerated Well Tolerated Well Pain Scale: 0-10 Numeric Is Patient Pain Free? Yes Yes Wound debrided: posterior upper arm Laterality: Right Type of Debridement: Excisional debridement Anesthesia Used: 4% Lidocaine Solution, 5% Lidocaine Gel Depth: Down to and including healthy tissue, in the subcutaneous layer Percentage of wound debrided: 100 Instrument Used: 3mm curette Tissue Removed: Subcutaneous tissue and slough Severity: Limited To Skin Breakdown Amount of bleeding with debridement: Mild Bleeding Controlled with: Pressure, Compression and gauze Patient tolerated procedure well Assessment/Plan Assessment: 1. Ulcer of right posteromedial arm by elbow. 2. Traumatic necrotic hematoma right posteromedial arm by elbow. 3. Skin necrosis. 4. Crushing injury right arm. 5. Abrasion right proximal lateral forearm by elbow- healed. 6. Smoker. 7. s/p surgical preparation right posteromedial arm by elbow with incision and drainage and evacuation and excisional debridement necrotic hematoma (120 cm2). Plan: Wound care: will stop moistened Sophia and start collagen hydrogel with adaptic daily. Encouraged him to massage the healed edges to help soften the s carring. He has finished the Cleocin for the operative culture that showed Staphylococcus epidermidis. Prealbumin from 11/11/18 was 28.9. Encourage nutritional supplementation with protein to help the healing process. Encourage range of motion exercises to minimize stiffness. Discussed delayed closure with further operative debridement with skin grafting. He will think about it and let me know. Encouraged the patient to stop smoking as it may have deleterious effects on wound healing. He was denied Epifix by his insurance company because it was not medically necessary. A wound culture was done 02/08/19. It showed Pasteurella multocida. He was placed on Cefdinir. He does have home health 1-2 times per week and his sister helps him change his dressing when home health is not available. Followup two weeks. Code Visit 111xxx-113xx: [id number] Nova subq tissue 20 sq cm/<
== END 2019-04-12 23:59 ==
LOC: WC 10:00
PROVIDERS: Family Provider Nurse Practitioner Family; PCP Nurse Practitioner Family; Referring Provider Nurse Practitioner Family; Visit Provider Nurse Practitioner Family
DX: S47 Crushing injury of shoulder and upper arm (principal); I96 Gangrene, not elsewhere classified; F17.200 Nicotine dependence, unspecified, uncomplicated; L98.492 Non-pressure chronic ulcer of skin of other sites with fat layer exposed; S40.021S Contusion of right upper arm, sequela; V89.9XXS Person injured in unspecified vehicle accident, sequela
CPT/HCPCS: 11042

== ENCOUNTER 2019-05-03 10:00 | Outpatient (RCR) | payer MEDICARE, SELFPAY ==
[2019-04-13 00:41] VITALS: BP 105/79; PULSE 84; RESP 16; TEMP 36
[2019-05-03 10:05] VITALS: BP 103/63; PULSE 68; RESP 18; TEMP 36.5; BMI 45.7
--- NOTE | 2019-05-03 14:30 | PN.PCM_ITS ---
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 History of Wound: Surgery 11/11/18 - Surgical preparation right posteromedial arm by elbow with incision and drainage and evacuation and excisional debridement necrotic hematoma (120 cm2). Wound care -He is healed today. Encouraged massage of the healed edges to help soften scarring and help with lymphatic drainage. Operative culture - Staphylococcus epidermidis. He was placed on Cleocin and has finished them. Also Sharona parapsilosis and he was placed on Diflucan. 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 Prealbumin from 11/11/18 was 28.9. Encourage nutritional supplementation with protein to help the healing process. CT right arm from 11/11/18 showed a large hematoma overlying the distal humerus and olecranon process with evidence of a soft tissue laceration and/or ulceration.. He recently fell on his right arm and the ulceration enlarged. Today he denies fever. His appetite is ok. Progress of Wound: Healed - Physical Exam Vital Signs Temp Pulse Resp BP 97.7 F L 68 18 103/63 05/03/19 10:05 05/03/19 10:05 05/03/19 10:05 05/03/19 10:05 General: Alert, Oriented x3, Cooperative HEENT: Atraumatic Oral: Moist Mucosa Lungs: Normal air movement Cardiovascular: Regular rate Skin: Ulcer/ Wound - Right posterior upper arm is healed today Wound Measurements and Assessment WC - Nurse 1 - General Ulcer Measurement Start: 05/03/19 10:05 Freq: Status: Active Protocol: Activity Type Activity Date Activity User E-Sign Co-Sign Detail Recorded Client Recorded Date Recorded By Document 05/03/19 10:05 [facility] [id number] 05/03/19 10:09 [facility] 05/03/19 10:05 Wound Center Nurse 1 [Ulcer Assessment] #1 right inner upper arm -Combined with other wound No -Current Size (cm) - Length 0.1 -Current Size (cm) - Width 0.1 -Current Size (cm) - Depth 0.1 -Total Square Cm 0.01 -Date of Last Picture (Recall this 05/03/19 field) -Photo Taken Yes -Epithelialization Large 67-100% -Tunneling No -Undermining/Tunneling No -Circular Undermining No -Texture (Abigail-wound Skin Appearance) Assessed, Scarring -Moisture (Abigail-wound Skin Appearance Assessed,Dry/ ) Scaly -Color (Abigail-wound Skin Appearance) Assessed -Temperature (Abigail-wound Skin No Abnormality Appearance) (Pt Warm) -Tenderness on Palpation (Abigail-wound No Skin Appearance) -Ulcer Cleansing Rinsed/ Irrigated with Saline -Foul Odor after Cleansing No WC - Nurse 2 - General Ulcer CM Notes Start: 05/03/19 10:05 Freq: Status: Active Protocol: Activity Type Activity Date Activity User E-Sign Co-Sign Detail Recorded Client Recorded Date Recorded By Document 05/03/19 10:45 [id number] 05/03/19 10:46 05/03/19 10:45 Wound Center Nurse 2 [Procedure/Treatment] -Correct Patient No -Correct Side, Site, Position No -Correct Procedure No -Procedure Performed No -Post Debridement Size (cm) - Length 0 -Post Debridement Size (cm) - Width 0 -Post Debridement Size (cm) - Depth 0 -Total Square Cm 0 -Wound/Ulcer Outcome Healed- Epithelialized [See Physician Procedure note for Specifics] Pain Scale: 0-10 Numeric [Pain] -Is Patient Pain Free? Yes Musculoskeletal: No Tenderness to Palpation of Joints or Extremities Neurological: Neuro grossly intact Psych/Mental Status: Normal Affect, Appropriate Debridement Note Post-Debridement Measurements/Treatment WC - Nurse 2 - General Ulcer CM Notes Start: 05/03/19 10:05 Freq: Status: Active Protocol: Activity Type Activity Date Activity User E-Sign Co-Sign Detail Recorded Client Recorded Date Recorded By Document 05/03/19 10:45 [id number] 05/03/19 10:46 KP 05/03/19 10:45 Wound Center Nurse 2 #1 right inner upper arm -Correct Patient No -Correct Side, Site, Position No -Correct Procedure No -Procedure Performed No -Post Debridement Size (cm) - Length 0 -Post Debridement Size (cm) - Width 0 -Post Debridement Size (cm) - Depth 0 -Total Square Cm 0 -Wound/Ulcer Outcome Healed- Epithelialized Pain Scale: 0-10 Numeric Is Patient Pain Free? Yes No debridement was completed today Assessment/Plan Assessment: 1. Ulcer of right posteromedial arm by elbow. 2. Traumatic necrotic hematoma right posteromedial arm by elbow. 3. Skin necrosis. 4. Crushing injury right arm. 5. Abrasion right proximal lateral forearm by elbow- healed. 6. Smoker. 7. s/p surgical preparation right posteromedial arm by elbow with incision and drainage and evacuation and excisional debridement necrotic hematoma (120 cm2). Plan: Wound care: He is healed today. Encouraged him to massage the area with lotion daily to help soften the scarring. He has finished the Cleocin for the operative culture that showed Staphylococcus epidermidis. Prealbumin from 11/11/18 was 28.9. Encourage nutritional supplementation with protein to help the healing process. Encourage range of motion exercises to minimize stiffness. Discussed delayed closure with further operative debridement with skin grafting. He will think about it and let me know. Encouraged the patient to stop smoking as it may have deleterious effects on wound healing. He was denied Epifix by his insurance company because it was not medically necessary. A wound culture was done 02/08/19. It showed Pasteurella multocida. He was placed on Cefdinir. He does have home health 1-2 times per week and his sister helps him change his dressing when home health is not available. Discharged from the wound center. Code Visit Office Visits / Consults: [id number] OV L3 Est
== END 2019-05-13 23:59 ==
LOC: WC 10:00
PROVIDERS: Family Provider Nurse Practitioner Family; PCP Nurse Practitioner Family; Referring Provider Nurse Practitioner Family; Visit Provider Nurse Practitioner Family
DX: Z09 Encounter for follow-up examination after completed treatment for conditions other than malignant neoplasm (principal)
CPT/HCPCS: 99212; G0463

== ENCOUNTER 2020-05-09 11:40 | Observation (INO) | payer MEDICARE, SELFPAY ==
[2020-02-23 13:02] VITALS: BMI 43.2
[2020-05-09] VITALS (7 sets, daily range): BP systolic 116–120; BP diastolic 48–80; PULSE 73–88; RESP 16–20; TEMP 36.2–36.8; O2SAT 92–100; BMI 39.4; BMI 39.5
--- NOTE | 2020-05-09 12:19 | EKG12_ITS ---
Test Reason : N AND VOMIT Blood Pressure : / mmHG Vent. Rate : 076 BPM Atrial Rate : 076 BPM P-R Int : 164 ms QRS Dur : 128 ms QT Int : 412 ms P-R-T Axes : 037 -75 049 degrees QTc Int : 463 ms Sinus rhythm with Premature atrial complexes Left axis deviation Non-specific intra-ventricular conduction block Abnormal ECG Confirmed by VON GUZMAN, SEBASTIAN ([id number]), story editor KAYLIN SIMON ([id number]) on 05/11/2020 9:03:53 AM Referred By: RU Confirmed By:SEBASTIAN LONGORIA MD
--- NOTE | 2020-05-09 12:20 | CT_ITS ---
We are attempting to reach an attending provider to discuss findings. An addendum with communication details will be sent when the communication is complete. STUDY: CT ABDOMEN AND PELVIS WITHOUT CONTRAST REASON FOR EXAM: Male, 64 years old. Abdomen pain, nausea/vomiting, hypertension. Hx hypertension, lumbar surgery. RADIATION DOSAGE (If Supplied By Facility): CTDIvol = ( 20.97 ) mGy, DLP = ( 1168.38 ) mGycm TECHNIQUE: Transaxial images were obtained from the dome of the diaphragm to the symphysis pubis without oral contrast, and without intravenous contrast. Sagittal and coronal images were reconstructed. Individualized dose optimization techniques were used for this CT. COMPARISON: None. FINDINGS: The visualized lung bases are unremarkable. Normal liver. Normal gallbladder and extrahepatic biliary system. Normal spleen. Normal pancreas. There is 3.5 cm left adrenal mass with average HU of 20. Unremarkable right kidney. Unremarkable left kidney. There is distention of the stomach with fluid. There are dilated loops of the small intestine (up to 4 cm) with a non-distended distal small bowel and colon consistent with a small bowel obstruction. There are multiple left small bowel loops that demonstrate peripheral foci of air, wall pneumatosis is not entirely excluded. There is no demonstrated portal venous air. Normal colon. The appendix is visualized and appears normal. There is atherosclerotic calcifications of the abdominal aorta. Normal urinary bladder. Normal abdominal wall. There are diffuse degenerative changes of the visualized lumbar spine. Instrumented thoracic fusion is noted. CT/Abdomen/Pelvis without Cont IMPRESSION: Dilated small bowel with collapsed distal small bowel and colon, consistent with small bowel obstruction. Pneumatosis is not excluded. 3.5 cm left adrenal mass. Comparison with prior examinations if available or further evaluation with MRI is recommended. Electronically Signed: Rosanna Trevino MD at 14:07 EDT Tel , Service support ,
--- NOTE | 2020-05-09 12:21 | ED.VISSUMM ---
- ER Visit Summary Date of Service: 05/09/20 Chief Complaint: [Abdominal pain and vomiting] History of Present Illness: The patient is a 64 M [presents to the emergency department with complaint of not feeling well since yesterday. Patient apparently last evening had some coffee from a gas station and after a couple of sips started feeling poorly. Patient vomited 3 or 4 times. He developed abdominal discomfort. states that he became weak and sweaty and diaphoretic. Patient had a hard time lifting his legs in the bed last night. He did complain of body aches yesterday. Patient had a fever up to 100 last evening. This morning he states that he feels improved overall just tired because he did not sleep well. He describes a minimal headache. He denies cough. He denies sore throat. He denies diarrhea. He has mild abdominal discomfort still. Patient does self cath for urine. Has not had any urinary tract infections in years.] Physical Examination: [HEENT-PERRLA, EOMI. Cranial nerves II through XII grossly intact. TMs clear. Mucous membranes moist. No adenopathy. Cardiovascular-regular rate and rhythm without murmur or ectopy Lungs-clear to auscultation, chest wall stable without crepitus or subcu emphysema Abdomen-normoactive bowel sounds, soft. Patient has diffuse tenderness to palpation over the abdomen that is mild. There is no rebound, rigidity, or peritoneal signs. Extremities-intact ?4, normal range of motion, normal pulses, atraumatic] Test Results: EKG obtained arrival shows sinus rhythm with a ventricular rate of 76 bpm with some nonspecific ST changes. CBC with differential showed a white count 6.5, hemoglobin 16, hematocrit 48, platelets 150. Chemistries unremarkable. BUN was 31 and creatinine 1.36. Lactate was 1.1. Urinalysis showed positive for nitrites and +3 bacteria. Troponin was less than 0.015. Chest x-ray showed nothing acute. CT scan of the M pelvis showed a small bowel obstruction and could not rule out pneumatosis coli.] COVID-19 test ordered and will be a send out with results in 4 to 5 days. Emergency Department Course and Treatment: [The line established on arrival. Patient was given saline. Discussed results with patient and recommended admission. Patient states that he is not having any abdominal pain and he feels back to his baseline and does not want to be admitted. Patient understands my concern that he could have worsening symptoms including bowel perforation, sepsis, and . Patient understands this and is refusing admission. His attempted to convince him to be admitted and he is refusing.] Patient prior to discharge did agree to be admitted for at least observation.. Hospitalist did see patient in the emergency department and will admit for observation. Treatment Plan: [Follow-up with primary care physician in 1 to 2 days] Disposition: [Admit] Impression: Abdominal pain Small bowel obstruction] This note was generated with [employer] dictation software. It may contain incorrect words, spelling, and punctuation that were not noted in review of the chart prior to signing ED Disposition - Plan for ED Patient: Instructions: Small Bowel Obstruction Referrals: Ellie David NP, [employer] [Primary Care Provider] - 1 Day for another exam
[2020-05-09] MEDS: 0.9% Normal Saline 1,000 ML 150 ML IV (12:30)
[2020-05-09 12:45] LABS: Absolute Neutrophil Count 4.6 X10^3/uL (2.0-7.7); Basophil# 0.02 X10^3/uL; Basophil% 0.3 % (0-1); Eosinophil# 0.05 X10^3/uL; Eosinophils% 0.8 % (0-5); Hematocrit 48.7 % (40-54); Hemoglobin 16.4 g/dL (13.0-16.5); Lymphocyte % 9.2 % (19-41); Mean Corp Hgb Conc 33.7 g/dL (32-36); Mean Corpuscular Hgb 31.2 pg (27.0-32.0); Mean Corpuscular Volume 92.6 fL (80-94); Mean Platelet Vol. 12.4 fl (6.2-12.0); Monocyte% 18.5 % (0-10); NRBC Flagged by Analyzer 0 % (0-5); Neutrophil # 4.61 X10^3/uL (2.7-7.7); POSITIVE DIFFERENTIAL YES; Platelet Count 150 K/mm3 (150-450); RBC Distribution Width CV 12.1 % (11.6-14.6); RBC Distribution Width SD 41.4 fl (35.1-43.9); Red Blood Count 5.26 M/mm3 (4.6-6.2); White Blood Count 6.5 K/mm3 (4.4-11.0)
[2020-05-09 12:47] LABS: Differential Indicated SCAN CRITERIA MET
[2020-05-09 13:11] LABS: AST(SGOT) 21 U/L (15-37); Alanine Aminotransfer ALT/SGPT 19 U/L (16-61); Albumin, Serum 3.3 g/dL (3.2-5.0); Alkaline Phosphatase 95 U/L (45-117); Anion Gap 6 (5-15); BUN 31 mg/dL (7-18); BUN/Creat Ratio 22.8 RATIO (10-20); Calcium,Total 9.3 mg/dL (8.5-10.1); Chloride 109 mmol/L (98-107); Creatinine, Serum 1.36 mg/dL (0.70-1.30); EST Glomerular Filtration Rate 56 mL/min (>60); Est Glom Filt Rate - Afr Amer 68 mL/min (>60); Estimated Creatinine Clearance 53.09 ml/min; Globulin 3.3 g/dL (2.2-4.2); Glucose 121 mg/dL (74-106); Potassium 4.1 mmol/L (3.5-5.1); Protein, Total 6.6 g/dL (6.4-8.2); Sodium Level 143 mmol/L (136-145)
[2020-05-09 13:22] LABS: Differential Comment SCANNED
[2020-05-09 13:24] LABS: Mucous, Urine 0 SEEN /hpf (<or=2+); Red Blood Cells-Urine 0 SEEN /hpf (0-5)
[2020-05-09 13:30] LABS: Color, Urine Yellow (Yellow); Glucose, Dipstick Normal (Normal); Ketone-Dipstick 5 mg/dl (Negative); Leukocyte Esterase-Dipstick 100 /ul (Negative); Nitrite-Dipstick Positive (Negative); Occult Blood-Urine 10 /ul (Negative); Protein-Dipstick 30 mg/dl (Negative); Urine Bilirubin Dipstick Negative (Negative); Urine Clarity Sl. Cloudy (Clear); Urine Urobilinogen 1 mg/dl (Normal)
[2020-05-09 13:36] LABS: Bacteria 3+ /hpf (None Seen); Squamous Epithelial Cells - UA 0-5 SEEN /hpf (0-5); White Blood Cells 0-5 SEEN /hpf (0-5)
[2020-05-09 13:36] LABS: Lactic Acid 1.1 mmol/L (0.4-1.9)
--- NOTE | 2020-05-09 14:07 | RAD_ITS ---
STUDY: X-RAY CHEST REASON FOR EXAM: Male, 64 years old. N/V. ABDOMEN PAIN. TECHNIQUE: Single AP portable view of the chest. COMPARISON: Comparison is made with prior study dated 11/11/2017. FINDINGS: Stable mild increased markings at the lung bases suggest some mild bibasilar scarring. There is no demonstrated pleural abnormality. Normal size heart. Normal mediastinum and oralia. Normal visualized pulmonary arteries. There is atherosclerotic tortuosity of the aortic arch and descending thoracic aorta. Prior screw and debbie fixation of the thoracic vertebrae. Normal visualized ribs, clavicles, and shoulders. There is no demonstrated abnormality of the visualized soft tissue structures of the upper abdomen. RAD/Chest 1 View (Portable) IMPRESSION: Stable examination. Mild linear scarring at the lung bases. Electronically Signed: Toy Cordero, at 14:22 EDT , Service support ,
--- NOTE | 2020-05-09 14:24 | DCINST.ED_ITS ---
ED Disposition - Plan for ED Patient: Instructions: Small Bowel Obstruction Referrals: Ellie David DENTAL SURGEON, [facility]GE[facility] [Primary Care Provider] - 1 Day for another exam
--- NOTE | 2020-05-09 14:24 | ED.DEP ---
ED Disposition - Plan for ED Patient: Instructions: Small Bowel Obstruction Referrals: Ellie David TILTING SAW OPERATOR, [facility] [Primary Care Provider] - 1 Day for another exam
--- NOTE | 2020-05-09 14:36 | NURSING ---
DR KESSLER IN ER
--- NOTE | 2020-05-09 14:49 | HP.PCM_ITS ---
Problem List (1) Tobacco abuse Status: Chronic (2) Essential hypertension Status: Chronic (3) Left adrenal mass Status: Acute (4) Small bowel obstruction Status: Acute (5) Benign prostatic hyperplasia Status: Chronic History of Present Illness Date of Admission: 05/09/20 Chief Complaint: Abdominal pain and vomiting. The patient is a 64 year old M with past medical history as mentioned above presented to the emergency room because of abdominal pain and vomiting. His symptoms started last night after he drank a cup of coffee, started having abdominal pain, diffuse abdominal pain, dull aching, not radiating, associated with nausea and vomiting as well as malaise and without aggravating or relieving factors. Last night, he continued to have abdominal pain, became weak and sweaty and he reported a low-grade fever of 100 Fahrenheit. He reported chronic cough without any change. Denied shortness of breath, sore throat. He denied exposure to COVID-19. He had bowel movement this morning. In the emergency department, his vital signs were stable. His routine blood work was remarkable for BUN of 31 and creatinine of 1.36. LFT was unremarkable. Lactic acid was normal. Urinalysis revealed cloudy urine, positive for nitrite, there was only 0-5 WBCs and 3+ bacteria. Chest x-ray showed no acute findings. EKG revealed normal sinus rhythm with PACs, no acute changes. CT scan abdomen and pelvis without contrast revealed findings consistent with small bowel obstruction and he was found to have incidental left adrenal mass. He is being admitted for observation for small bowel obstruction and dehydration. Past Medical History Past Medical History (Chronic Problems): Chronic Problems (Last Updated 05/09/20 @ 14:[address] Guerrero Parker MD) Traumatic hematoma of right upper arm (Chronic) Smoker (Chronic) Crushing injury of right arm (Chronic) Open wound of right upper arm with complication (Chronic) Ulcer of upper extremity with fat layer exposed (Chronic) Benign prostatic hyperplasia (Chronic) Tobacco abuse (Chronic) Essential hypertension (Chronic) Medical History: Medical History (Last Updated 05/09/20 @ 14:[address] Guerrero Parker MD) Tobacco abuse (Chronic) Z72.0 Essential hypertension (Chronic) I10 BPH (benign prostatic hyperplasia) N40.[address] angiography (Inactive) R93.1 Allergies gadodiamide [From Omniscan] Allergy (Verified 08/12/19 15:52) Hives Penicillins [PCN] Allergy (Verified 08/12/19 15:52) Fever and skin rash Home Medications: Ambulatory Orders Medication Instructions Recorded Finasteride 5 mg PO DAILY 11/10/18 Gabapentin [Neurontin] 400 mg PO TID 11/10/18 Metoprolol Succinate 25 mg PO DAILY 11/10/18 Montelukast [Singulair] 10 mg PO DAILY 11/10/18 Rosuvastatin Calcium [Crestor] 5 mg PO DAILY 11/10/18 Tamsulosin HCl [Flomax] 0.4 mg PO DAILY 11/10/18 Aspirin E.C. [Ecotrin] 81 mg PO DAILY@0800 05/09/20 Torsemide 20 mg PO DAILY 05/09/20 Surgical History: Surgical History (Last Reviewed 05/09/20 @ 14:[address] Guerrero Parker MD) History of cystoscopy Z98.890 History of knee replacement Z96.659 History of oral surgery Z98.890 History of surgery on arm Z98.890 Rt Personal history of spine surgery Z98.890 Surgical History: total knee arthroplasty, - Smoking Status: Current every day smoker Tobacco Use: Cigarettes Alcohol: None Drugs: None - *Family History Maternal Family History: Family History (Last Reviewed 05/09/20 @ 14:[address] Guerrero Parker MD) Father Heart disease Hypertension Mother Heart disease Thyroid disorder Hypertension Aunt Diabetes Review of Systems Constitutional: Reports: Anorexia, Malaise. Denies: Chills, Fever, Weakness, Fatigue Eyes: Denies: Blurred vision, Double vision, Drainage, Redness HEENT: Denies: Difficulty Hearing, Dysphasia, Ear Pain, Eye Pain, Nasal Congestion, Sore Throat Cardiovascular: Denies: Chest Pain, Claudication, Chest Pressure, Edema, Heaviness, Palpitations, Syncope Respiratory: Reports: Cough. Denies: Hemoptysis, Pleuritic Pain, Sputum production, Wheezing Gastrointestinal: Reports: Abdominal Pain. Denies: Constipation, Diarrhea, Nausea, Vomiting Genitourinary: Denies: Dysuria, Frequency, Hematuria Musculoskeletal: Denies: Arm Pain, Back Pain, Foot Pain Skin: Denies: Dryness, Rash Neurological: Denies: Balance problems, Blurred vision, Double vision, Change in Speech, Slurred speech, Confusion, Focal weakness, Incoordination, Numbness Psychiatric: Denies: Anxiety, Depression Endocrine: Denies: Change in Body Habitus, Polydipsia, Polyuria VTE Information - Inpt Only VTE Present on Admission: No VTE Mechan Device Prophylaxis: None VTE Pharm Prophylaxis ordered?: Yes Patient Problems: Active and Suspected Problems (Last Updated 05/09/20 @ 14:[address] Guerrero Parker MD) Small bowel obstruction (Acute) Left adrenal mass (Acute) - Physical Exam Vitals/I&O's: Vital Signs Temp Pulse Resp BP Pulse Ox 98.3 F 78 16 116/69 98 05/09/20 14:05 05/09/20 14:05 05/09/20 14:05 05/09/20 14:05 05/09/20 14:05 Oxygen Delivery Method Room Air Weight: 259 lb Body Mass Index (BMI) 39.4 Intake and Output for Last 24 Hours 05/07/20 05/08/20 05/09/20 23:59 23:59 23:59 Intake Total 500 / 500 Balance 500 / 500 General: Alert, Oriented x3, Cooperative, No apparent distress HEENT: Atraumatic, PERRLA, EOMI, Normocephalic Oral: Moist Mucosa, No Gingival or Mucosal Lesions/ Ulcerations Neck: Supple, No JVD, Negative Carotid Bruits, Trachea Midline, Thyroid Normal Size and Texture Lungs: Clear to auscultation, Normal air movement, No rhonchi, No wheeze, No rales, Diminished Cardiovascular: Regular rate, Regular Rhythm, Normal S1, Normal S2, PMI Normal Abdomen: Soft, Non Tender, Non-Distended, No Hepato-splenomegaly, Hypoactive Bowel Sounds, Obese Extremities: No clubbing, No cyanosis, Edema - Trace edema. Skin: No rashes, No breakdown Lymphatic: No Cervical, Supraclavicular, or Inguinal Adenopathy Neurological: Cranial nerves II-XII grossly intact, Motor Exam 5/5 strength throughout Psych/Mental Status: Normal Affect, Appropriate, Alert and oriented to time, place, person, mood and affect Laboratory Results 05/09/20 12:25: WBC 6.5, RBC 5.26, Hgb 16.4, Hct 48.7, MCV 92.6, MCH 31.2, MCHC 33.7, RDW Std Deviation 41.4, RDW Coeff of Paty 12.1, Plt Count 150, MPV 12.4 H, Immature Gran % (Auto) 0.200, Neut % (Auto) 71.0 H, Lymph % (Auto) 9.2 L, [place] % (Auto) 18.5 H, Eos % (Auto) 0.8, Baso % (Auto) 0.3, Absolute Neuts (auto) 4.6, Absolute Lymphs (auto) 0.60 L, Nucleated RBC % 0, Differential Comment SCANNED 05/09/20 12:25: Sodium 143, Potassium 4.1, Chloride 109 H, Carbon Dioxide 28.0, Anion Gap 6, BUN 31 H, Creatinine 1.36 H, Estim Creat Clear Calc 53.09, Est GFR (MDRD) Af Amer 68, Est GFR (MDRD) Non-Af 56 L, BUN/Creatinine Ratio 22.8 H, Glucose 121 H, Calcium 9.3, Total Bilirubin 0.80, AST 21, ALT 19, Alkaline Phosphatase 95, Troponin I < 0.015, Total Protein 6.6, Albumin 3.3, Globulin 3.3, Albumin/Globulin Ratio 1.0 05/09/20 12:25: Lactic Acid 1.1 05/09/20 13:20: Urine Color Yellow, Urine Clarity Sl. Cloudy, Urine pH 7.0, Ur Specific Industry 1.010, Urine Protein 30 H, Urine Glucose (UA) Normal, Urine Ketones 5 H, Urine Occult Blood 10 H, Urine Nitrite Positive H, Urine Bilirubin Negative, Urine Urobilinogen 1 H, Ur Leukocyte Esterase 100 H, Urine RBC 0 SEEN, Urine WBC 0-5 SEEN, Ur Squamous Epith Cells 0-5 SEEN, Urine Bacteria 3+, Urine Mucus 0 SEEN Clinical Impression(s) from Imaging Studies Abdomen/Pelvis CT 05/09/20 12:20 IMPRESSION: Dilated small bowel with collapsed distal small bowel and colon, consistent with small bowel obstruction. Pneumatosis is not excluded. 3.5 cm left adrenal mass. Comparison with prior examinations if available or further evaluation with MRI is recommended. Electronically Signed: Rosanna Trevino MD at 14:07 EDT Tel , Service support , ADDENDUM: 05/09/20 1426 IMPRESSION: Dilated small bowel with collapsed distal small bowel and colon, consistent with small bowel obstruction. Pneumatosis is not excluded. 3.5 cm left adrenal mass. Comparison with prior examinations if available or further evaluation with MRI is recommended. N.B. : The above information has been verbally conveyed by Rosanna Trevino MD to Carmelina Cartwright MD, , on 05/09/2020 14:19:13 (ET). Electronically Signed: Rosanna Trevino MD at 14:07 EDT Tel , Service support , Chest X-Ray 05/09/20 14:07 IMPRESSION: Stable examination. Mild linear scarring at the lung bases. Electronically Signed: Toy Consuelo, at 14:22 EDT , Service support , Current Medications Sodium Chloride () 1,000 mls @ 150 mls/hr IV .[id number] PETRA Last Admin: 05/09/20 12:30 Dose: 150 mls/hr Documented by: Assessment/Plan All Active Problems (Last Updated 05/09/20 @ 14:[address] Guerrero Parker MD) Small bowel obstruction (Acute) Left adrenal mass (Acute) This is a 64 years old male patient presented to the emergency room because of abdominal pain with nausea and vomiting and he was found to have small bowel obstruction and incidentally, he was found to have left renal mass on CT scan abdomen pelvis. #1 small bowel obstruction: CT scan abdomen pelvis reviewed. Patient had bowel movement this morning. He is dehydrated. Serum electrolytes are within normal limits. LFT was unremarkable. EKG reviewed, was unremarkable. Troponin was negative. Lactic acid was normal. Chest x-ray showed no acute findings. Plan: Admit to PCU for observation, keep on clear liquids, IV fluids, IV morphine as needed for pain, IV Zofran as needed, replace electrolytes as appropriate, KUB tomorrow morning, repeat CBC and BMP tomorrow morning. May consider general surgery consult later if no improvement. #2 dehydration: Secondary to #1. BUN is 31, creatinine is 1.36, baseline kidney function is normal. Plan: IV fluids as above, input output chart, avoid nephrotoxic drugs, repeat BMP tomorrow morning. #3 left adrenal mass: It is measuring 3.5 cm. It is an incidental finding. No evidence of hypertension suggesting pheochromocytoma. Blood pressure and potassium are normal and no blood work suggestive of hyperaldosteronism. No clinical findings suggestive of generalization or immunization. No clinical features of Leonard syndrome. Does have history of hypertension which has been under control with metoprolol. Plan: Check serum cortisol, urine and plasma metanephrines, aldosterone to renin ratio, recommend follow-up with PCP as outpatient for further work-up. #4 benign prostatic hypertrophy: Patient does self-catheterization. Urinalysis reviewed. I doubt acute cystitis. Plan for urine culture, continue self-catheterization, continue finasteride and Flomax. #5 hypertension: Blood pressure stable, continue metoprolol, hold torsemide. #6 hyperlipidemia: Continue statins. #7 DVT prophylaxis: Subcu Lovenox. This note was generated with [employer] dictation software. It may contain incorrect words, spelling, and punctuation that were not noted in checking the note before signing. OBSV E&M: 80642 Initial observation care L3
[2020-05-09] MEDS: 0.9% Saline Lock 10 ML Syringe IV (15:44)
[2020-05-09] MEDS: 0.9% Normal Saline 1,000 ML 100 ML IV (15:44)
[2020-05-09] MEDS: Gabapentin 400 MG Capsule PO (17:14)
[2020-05-09] MEDS: Acetaminophen 325 MG Tablet 650 MG PO (19:55)
[2020-05-09] MEDS: Atorvastatin Calcium 10 MG Tablet PO (19:55)
--- NOTE | 2020-05-09 20:00 | NURSING ---
Late note: Pt's fiance called to say that pt fell on his back last week (maybe ?) and wondered if that is what caused his SBO.
[2020-05-09] MEDS: Ondansetron 4 MG/2 ML Vial IV (23:05)
[2020-05-10 02:02] VITALS: BP 112/69; PULSE 79; RESP 18; TEMP 36.7; O2SAT 99
[2020-05-10] MEDS: 0.9% Normal Saline 1,000 ML 100 ML IV (02:02)
[2020-05-10 05:50] LABS: Absolute Lymphocyte Count 0.83 X10^3/uL (0.83-4.51); Absolute Neutrophil Count 3.7 X10^3/uL (2.0-7.7); Basophil# 0.02 X10^3/uL; Basophil% 0.3 % (0-1); Eosinophil# 0.18 X10^3/uL; Eosinophils% 3.1 % (0-5); Hematocrit 46.5 % (40-54); Hemoglobin 15.4 g/dL (13.0-16.5); Lymphocyte # 0.83 X10^3/ul (4.0); Lymphocyte % 14.2 % (19-41); Mean Corp Hgb Conc 33.1 g/dL (32-36); Mean Corpuscular Hgb 31.1 pg (27.0-32.0); Mean Corpuscular Volume 93.9 fL (80-94); Mean Platelet Vol. 11.8 fl (6.2-12.0); Monocyte# 1.08 X10^3/uL; Monocyte% 18.5 % (0-10); NRBC Flagged by Analyzer 0 % (0-5); Neutrophil # 3.71 X10^3/uL (2.7-7.7); Neutrophil % 63.7 % (47-70); Platelet Count 129 K/mm3 (150-450); RBC Distribution Width SD 41.4 fl (35.1-43.9); Red Blood Count 4.95 M/mm3 (4.6-6.2); White Blood Count 5.8 K/mm3 (4.4-11.0)
--- NOTE | 2020-05-10 05:55 | RAD_ITS ---
STUDY: X-RAY - ABDOMEN/PELVIS REASON FOR EXAM: Male, 64 years old. Small bowel obstruction. TECHNIQUE: Single AP view of the abdomen / pelvis. COMPARISON: None. FINDINGS: Normal visualized lung bases. There are dilated loops of the small intestine with a non-distended colon consistent with a small bowel obstruction. Gas and fecal material are seen in the colon. This may represent either incomplete or early small bowel obstruction. Follow-up is recommended. The visualized liver, spleen and kidneys are grossly normal in size and morphology. Normal soft tissue structures. There are diffuse degenerative changes of the visualized lumbar spine. Prior screw and debbie fixation of the lower thoracic and upper lumbar vertebrae. RAD/Abdomen Single View IMPRESSION: Small bowel obstruction. Fecal material is seen in the colon. This represent either an early small bowel obstruction or partial small bowel obstruction. Follow-up is recommended. Electronically Signed: Toy Cordero, at 11:08 EDT , Service support ,
[2020-05-10 06:21] LABS: Anion Gap 5 (5-15); BUN 26 mg/dL (7-18); Calcium,Total 8.6 mg/dL (8.5-10.1); Chloride 109 mmol/L (98-107); Creatinine, Serum 1.13 mg/dL (0.70-1.30); EST Glomerular Filtration Rate 69 mL/min (>60); Est Glom Filt Rate - Afr Amer 84 mL/min (>60); Estimated Creatinine Clearance 63.89 ml/min; Glucose 112 mg/dL (74-106); Sodium Level 142 mmol/L (136-145)
[2020-05-10 08:54] VITALS: BP 130/92; PULSE 76; RESP 18; TEMP 36.4; O2SAT 96
[2020-05-10 08:56] VITALS: PULSE 76
[2020-05-10] MEDS: Metoprolol(XL)Succ 25 MG Tablet PO (08:56)
[2020-05-10] MEDS: Tamsulosin HCl 0.4 MG Capsule PO (08:56)
[2020-05-10] MEDS: Aspirin E.C. 81 MG Tablet PO (08:56)
[2020-05-10] MEDS: Gabapentin 400 MG Capsule PO ×2 (08:56→11:32)
[2020-05-10] MEDS: Montelukast 10 MG Tablet PO (08:57)
[2020-05-10] MEDS: Finasteride 5 MG Tablet PO (08:57)
[2020-05-10 13:32] VITALS: BP 129/80; PULSE 70; RESP 18; TEMP 36.8; O2SAT 94
--- NOTE | 2020-05-10 15:00 | DCINST_ITS ---
- Discharge Diagnoses Current Active Problems: Current Active and Chronic Problems (Last Updated 05/09/20 @ 14:[address] Guerrero Parker MD) Benign prostatic hyperplasia (Chronic) Small bowel obstruction (Acute) Left adrenal mass (Acute) Tobacco abuse (Chronic) Essential hypertension (Chronic) You will use the following diet at home:: No restrictions Call your doctor if you observe: - - worsening abdominal pain Instructions: Small Bowel Obstruction Allergies/Adverse Reactions: Allergies gadodiamide [From Omniscan] Allergy (Verified 08/12/19 15:52) Hives Penicillins [PCN] Allergy (Verified 08/12/19 15:52) Fever and skin rash Medications to take at Discharge Finasteride 5 mg PO DAILY 11/10/18 Gabapentin [Neurontin] 400 mg PO TID 11/10/18 Metoprolol Succinate 25 mg PO DAILY 11/10/18 Montelukast [Singulair] 10 mg PO DAILY 11/10/18 Rosuvastatin Calcium [Crestor] 5 mg PO DAILY 11/10/18 Tamsulosin HCl [Flomax] 0.4 mg PO DAILY 11/10/18 Aspirin E.C. [Ecotrin] 81 mg PO DAILY@0800 05/09/20 Torsemide 20 mg PO DAILY 05/09/20 Primary Care Physician: Ellei David NP, BIZTALK ADMINISTRATOR-C [Primary Care Provider] - 1 Day for another exam Test Results: Test results from this visit will be discussed in further detail at your follow- up appointment, if applicable. Proposed Discharge Date: 05/10/20
[2020-05-10 15:02] VITALS: O2SAT 95
--- NOTE | 2020-05-10 15:04 | PCM.DC.SUM ---
Discharge Date and Diagnosis - Problem List Patient Problems: Active and Suspected Problems (Last Updated 05/09/20 @ 14:[address] Guerrero Parker MD) Small bowel obstruction (Acute) Left adrenal mass (Acute) Date of Admission: 05/09/20 Date of Discharge: 05/10/20 - Primary Discharge Diagnosis Acute Problems: Active Problems (Last Updated 05/09/20 @ 14:[address] Guerrero Parker MD) Small bowel obstruction (Acute) Left adrenal mass (Acute) - Secondary Discharge Diagnosis Chronic Problems: Chronic Problems (Last Updated 05/09/20 @ 14:[address] Guerrero Parker MD) Traumatic hematoma of right upper arm (Chronic) Smoker (Chronic) Crushing injury of right arm (Chronic) Open wound of right upper arm with complication (Chronic) Ulcer of upper extremity with fat layer exposed (Chronic) Benign prostatic hyperplasia (Chronic) Tobacco abuse (Chronic) Essential hypertension (Chronic) Hospital Course and Treatment Imaging Results: Clinical Impression(s) from Imaging Studies Abdomen/Pelvis CT 05/09/20 12:20 IMPRESSION: Dilated small bowel with collapsed distal small bowel and colon, consistent with small bowel obstruction. Pneumatosis is not excluded. 3.5 cm left adrenal mass. Comparison with prior examinations if available or further evaluation with MRI is recommended. Electronically Signed: Rosanna Trevino MD at 14:07 EDT Tel , Service support , ADDENDUM: 05/09/20 1426 IMPRESSION: Dilated small bowel with collapsed distal small bowel and colon, consistent with small bowel obstruction. Pneumatosis is not excluded. 3.5 cm left adrenal mass. Comparison with prior examinations if available or further evaluation with MRI is recommended. N.B. : The above information has been verbally conveyed by Rosanna Trevino MD to Carmelina Cartwright MD, , on 05/09/2020 14:19:13 (ET). Electronically Signed: Rosanna Trevino MD at 14:07 EDT Tel , Service support , Chest X-Ray 05/09/20 14:07 IMPRESSION: Stable examination. Mild linear scarring at the lung bases. Electronically Signed: Toy Cordero, at 14:22 EDT , Service support , KUB X-Ray 05/10/20 05:55 IMPRESSION: Small bowel obstruction. Fecal material is seen in the colon. This represent either an early small bowel obstruction or partial small bowel obstruction. Follow-up is recommended. Electronically Signed: Toy Cordero, at 11:08 EDT , Service support , Operations: None Procedures: None Summary of Care Provided: The patient is a 64 year old M presents with abdominal pain and vomiting. Patient that he was drinking some coffee and then suddenly developed abdominal pain and then vomiting. Patient presented to the emergency room and was found to have small bowel obstruction. He did not require an NG tube and did improve and started having bowel movements.'s patient has improved from that standpoint. Patient denies any prior history abdominal surgery. Patient advised that he has worsening abdominal pain to notify physician or come back to the hospital. Patient did have a CAT scan that also showed 3.5 cm left adrenal mass. Hounsfield units were 20. Patient will need further work-up for this incidentaloma to evaluate for pheochromocytoma, with a 24-hour urinary fractionated metanephrines and catecholamines. Patient also need to be evaluated with a 1 mg overnight dexamethasone suppression test. Patient may also warrant further work-up. [] Patient Problems: Active and Suspected Problems (Last Updated 05/09/20 @ 14:[address] Guerrero Parker MD) Small bowel obstruction (Acute) Left adrenal mass (Acute) - Physical Exam Vitals/I&O's: Vital Signs Temp Pulse Resp BP Pulse Ox 36.8 C 70 18 129/80 H 95 05/10/20 13:32 05/10/20 13:32 05/10/20 13:32 05/10/20 13:32 05/10/20 15:02 Oxygen Delivery Method Room Air Weight: 117.9 kg Body Mass Index (BMI) 39.5 Intake and Output for Last 24 Hours 05/08/20 05/09/20 05/10/20 23:59 23:59 23:59 Intake Total 1070 / 1070 2298.33 / 2298.33 Balance 1070 / 1070 2298.33 / 2298.33 General: Alert, Cooperative, No apparent distress HEENT: Atraumatic, Normocephalic Oral: Moist Mucosa, No Gingival or Mucosal Lesions/ Ulcerations Neck: No Nodes, Thyroid Normal Size and Texture Lungs: Clear to auscultation, Normal air movement, No rhonchi, No wheeze, No rales Cardiovascular: Regular rate, Regular Rhythm, Normal S1, Normal S2, No murmurs Abdomen: Bowel Sounds Present, Soft, Non Tender, Non-Distended, No Hepato-splenomegaly Extremities: No edema, No Calf Tenderness Skin: No rashes, No breakdown Psych/Mental Status: Normal Affect, Appropriate Microbiology Past 72 Hours 05/09/20 13:20 Urine, Clean Catch Urine Culture - Preliminary GNR lactose quality assurance supervisor Laboratory Results 05/10/20 05:28: WBC 5.8, RBC 4.95, Hgb 15.4, Hct 46.5, MCV 93.9, MCH 31.1, MCHC 33.1, RDW Std Deviation 41.4, RDW Coeff of Paty 12.0, Plt Count 129 L, MPV 11.8, Immature Gran % (Auto) 0.200, Neut % (Auto) 63.7, Lymph % (Auto) 14.2 L, [place] % (Auto) 18.5 H, Eos % (Auto) 3.1, Baso % (Auto) 0.3, Absolute Neuts (auto) 3.7, Absolute Lymphs (auto) 0.83, Nucleated RBC % 0 05/10/20 05:28: Sodium 142, Potassium 4.0, Chloride 109 H, Carbon Dioxide 28.0, Anion Gap 5, BUN 26 H, Creatinine 1.13, Estim Creat Clear Calc 63.89, Est GFR (MDRD) Af Amer 84, Est GFR (MDRD) Non-Af 69, BUN/Creatinine Ratio 23.0 H, Glucose 112 H, Calcium 8.6 05/10/20 07:10: Cortisol 20.05/10/20 07:10: Miscellaneous Test Pending 05/10/20 07:10: Renin Pending, Aldosterone Pending, Urine Metanephrine Pending, U Metanephrines 24 Hr Pending, U Normetanephrine Pending, U Normetanephrine 24h Pending Current Medications Acetaminophen (Acetaminophen 325 Mg Tablet) 650 mg PO Q6H PRN PRN PRN Reason: Pain Score 1-10/Temp > 100.7 F Last Admin: 05/09/20 19:55 Dose: 650 mg Documented by: Aspirin (Aspirin E.C. 81 Mg Tablet) 81 mg PO DAILY@0800 [facility] Last Admin: 05/10/20 08:56 Dose: 81 mg Documented by: Atorvastatin Calcium (Atorvastatin Calcium 10 Mg Tablet) 10 mg PO QHS [facility] Last Admin: 05/09/20 19:55 Dose: 10 mg Documented by: Enoxaparin Sodium (Enoxaparin 30 Mg/0.3 Ml Syringe) 30 mg SC DAILY [facility] Last Admin: 05/10/20 08:55 Dose: Not Given Documented by: Finasteride (Finasteride 5 Mg Tablet) 5 mg PO DAILY [facility] Last Admin: 05/10/20 08:57 Dose: 5 mg Documented by: Gabapentin (Gabapentin 400 Mg Capsule) 400 mg PO TIDCM [facility] Last Admin: 05/10/20 11:32 Dose: 400 mg Documented by: Sodium Chloride () 1,000 mls @ 100 mls/hr IV .Q10H [facility] Last Admin: 05/10/20 11:26 Dose: Not Given Documented by: Sodium Chloride () 250 mls @ 15 mls/hr IV .[id number] PRN PRN Reason: Saline Flush Sodium Chloride () 250 mls @ 15 mls/hr IV .[id number] PRN PRN Reason: Additional IVPB Infusion Metoprolol Succinate (Metoprolol(Xl)Succ 25 Mg Tablet) 25 mg PO DAILY [facility] Last Admin: 05/10/20 08:56 Dose: 25 mg Documented by: Montelukast Sodium (Montelukast 10 Mg Tablet) 10 mg PO DAILY [facility] Last Admin: 05/10/20 08:57 Dose: 10 mg Documented by: Morphine Sulfate (Morphine 2 Mg/Ml Syringe) 2 mg IV Q3H PRN PRN PRN Reason: Pain Score 6-10 Ondansetron HCl (Ondansetron 4 Mg/2 Ml Vial) 4 mg IV Q8H PRN PRN PRN Reason: NAUSEA/VOMITING Last Admin: 05/09/20 23:05 Dose: 4 mg Documented by: Sodium Chloride (0.9% Saline Lock 10 Ml Syringe) 10 - 40 ml IV UD PRN PRN Reason: SALINE FLUSH Last Admin: 05/09/20 15:44 Dose: 10 ml Documented by: Tamsulosin HCl (Tamsulosin Hcl 0.4 Mg Capsule) 0.4 mg PO DAILY@0830 [facility] Last Admin: 05/10/20 08:56 Dose: 0.4 mg Documented by: Zolpidem Tartrate (Zolpidem Tartrate 5 Mg Tablet) 5 mg PO QHS PRN PRN PRN Reason: INSOMNIA Discharge Diet: No Restrictions Discharge Activity: Return to Normal Activity Call your doctor if you observe: - - worsening abdominal pain Home Medications: Medications to take at Discharge Finasteride 5 mg PO DAILY 11/10/18 Gabapentin [Neurontin] 400 mg PO TID 11/10/18 Metoprolol Succinate 25 mg PO DAILY 11/10/18 Montelukast [Singulair] 10 mg PO DAILY 11/10/18 Rosuvastatin Calcium [Crestor] 5 mg PO DAILY 11/10/18 Tamsulosin HCl [Flomax] 0.4 mg PO DAILY 11/10/18 Aspirin E.C. [Ecotrin] 81 mg PO DAILY@0800 05/09/20 Torsemide 20 mg PO DAILY 05/09/20 Primary Care Physician: Ellie David NP, CIVIL LITIGATION ATTORNEY-C [Primary Care Provider] - 1 Day for another exam Patient Instructions: Small Bowel Obstruction Medical Necessity - Tobacco Use Smoking Status: Current every day smoker Tobacco Use: Cigars Meaningful Use Info Meaningful Use Diagnoses (Choose all that apply): None applicable OBSV E&M: 93097 Observation care discharge Multi Select Codes - Visit Charges Observation E&M Codin Observation care discharge
== END 2020-05-10 15:29 | disposition home or self-care (01) ==
LOC: ED 12:37 → MS3 14:54
PROVIDERS: Admitting Provider Hospitalist; Emergency Provider Emergency Medicine; PCP Nurse Practitioner Family
DX: K56.600 Partial intestinal obstruction, unspecified as to cause (principal); E27.9 Disorder of adrenal gland, unspecified; I45.9 Conduction disorder, unspecified; I49.1 Atrial premature depolarization; I10 Essential (primary) hypertension; F17.210 Nicotine dependence, cigarettes, uncomplicated; E86.0 Dehydration; E78.5 Hyperlipidemia, unspecified; N40.0 Benign prostatic hyperplasia without lower urinary tract symptoms; Z79.899 Other long term (current) drug therapy; Z79.82 Long term (current) use of aspirin
CPT/HCPCS: 36415; 71045; 74018; 74176; 80048; 80053; 81001; 82088; 82533; 83605; 83835; 84244; 84484; 85025; 87077; 87086; 87088; 87186; 93005; 96361; 96374; 97166; 99218; 99251; 99285; 99406; J7030; P9612; A4216; G0378; G0463; J2405

== ENCOUNTER → 2021-04-03 11:42 | Outpatient (CLI) | payer MEDICARE, SELFPAY ==
[2021-04-03 15:18] LABS: Hematocrit 53.7 % (40-54); Hemoglobin 17.9 g/dL (13.0-16.5); Mean Corp Hgb Conc 33.3 g/dL (32-36); Mean Corpuscular Hgb 31.6 pg (27.0-32.0); Mean Corpuscular Volume 94.9 fL (80-94); Platelet Count 111 K/mm3 (150-450); RBC Distribution Width CV 12.3 % (11.6-14.6); Red Blood Count 5.66 M/mm3 (4.6-6.2); White Blood Count 6.6 K/mm3 (4.4-11.0)
[2021-04-03 15:26] LABS: Vitamin B12 487 pg/mL (211-911)
[2021-04-03 15:45] LABS: AST(SGOT) 10 U/L (15-37); Alanine Aminotransfer ALT/SGPT 18 U/L (16-61); Albumin, Serum 3.6 g/dL (3.2-5.0); Alkaline Phosphatase 106 U/L (45-117); Anion Gap 2 (5-15); BUN 26 mg/dL (7-18); BUN/Creat Ratio 22.6 RATIO (10-20); Calcium,Total 8.8 mg/dL (8.5-10.1); Chloride 110 mmol/L (98-107); Creatinine, Serum 1.15 mg/dL (0.70-1.30); EST Glomerular Filtration Rate 68 mL/min (>60); Est Glom Filt Rate - Afr Amer 82 mL/min (>60); Globulin 3.6 g/dL (2.2-4.2); Glucose 91 mg/dL (74-106); Potassium 3.8 mmol/L (3.5-5.1); Protein, Total 7.2 g/dL (6.4-8.2); Sodium Level 143 mmol/L (136-145); Thyroid Stim Hormone (TSH) 2.19 uIU/mL (0.358-3.74)
[2021-04-06 20:08] LABS: Free Kappa Light Chains 24.8 mg/L (3.3-19.4); Free Lambda Light Chains 14.7 mg/L (5.7-26.3)
== END ==
PROVIDERS: PCP Nurse Practitioner Family; Referring Provider Psychiatry & Neurology Neurology; Visit Provider Psychiatry & Neurology Neurology
DX: S40.021A Contusion of right upper arm, initial encounter (principal); I10 Essential (primary) hypertension; G62.89 Other specified polyneuropathies
CPT/HCPCS: 36415; 80053; 82607; 82746; 83883; 84443; 85027

== ENCOUNTER → 2021-04-16 13:21 | Outpatient (CLI) | payer MEDICARE, SELFPAY ==
--- NOTE | 2021-04-16 13:46 | ART_ITS ---
Reason For Study: PAD Procedure A bilateral lower extremity continuous wave Doppler with analog waveform analysis and ankle brachial indexes. Left Segmental Pressures Left brachial= 106mmHg. Left posterior tibial artery = 96mmHg. Left dorsalis pedis artery = 87mmHg. Left digit = 67 mmHg. The left posterior tibial artery waveforms are biphasic. The left dorsalis pedis waveforms are monophasic. Right Segmental Pressures Right brachial= 92mmHg. Right posterior tibial artery = 95mmHg. Right dorsalis pedis artery = 98mmHg. Right digit = 74 mmHg. The right dorsalis pedis waveforms are biphasic. The right posterior tibial artery waveforms are biphasic. Indices The right ankle brachial index by the dorsalis pedis is .92. The right ankle brachial index by the posterior tibial artery is .90. The right digital-brachial index is .70. The left ankle brachial index by the dorsalis pedis is .82. The left ankle brachial index by the posterior tibial artery is .91. The left digital-brachial index is .63. VL/Ankle Brachial Index Interpretation Summary Abnormal right PT and DP ankle-brachial index at rest of 0.90 and 0.92 respecti vely consistent with mild disease. Biphasic right posterior tibial and dorsalis pedis Doppler waveforms consistent with a more moderate degree of occlusive disease. Abnormal right digital brachial index Abnormal left PT and DP ankle-brachial index of 0.91 and 0.82 consistent with m ild disease. The left posterior tibial and dorsalis pedis waveforms are biphasic and monophasic consi stent with moderately severe disease. Abnormal left digital brachial index Ordering Physician: Ron Zuniga Referring Physician: DEVANTE ZUÑIGA Performed By: LARA ALANIS RDCS
[2021-04-19 12:08] LABS: Albumin 3.3 g/dL (2.9-4.4); Alpha-1-Globulins 0.3 g/dL (0.0-0.4); Alpha-2-Globulins 0.7 g/dL (0.4-1.0); Gamma Globulin 0.7 g/dL (0.4-1.8); Immunoglobulin A 252 mg/dL (61-437); Immunoglobulin G 651 mg/dL (603-1613); Immunoglobulin M 30 mg/dL (20-172)
[2021-04-19 13:55] LABS: Vitamin D 1,25-Dihydroxy 18.7 pg/mL (19.9-79.3)
== END ==
PROVIDERS: PCP Nurse Practitioner Family; Referring Provider Psychiatry & Neurology Neurology; Visit Provider Psychiatry & Neurology Neurology
DX: I73.9 Peripheral vascular disease, unspecified (principal); E55.9 Vitamin D deficiency, unspecified; G62.9 Polyneuropathy, unspecified
CPT/HCPCS: 36415; 82652; 82784; 84165; 86334; 86335; 93922

== ENCOUNTER → 2021-06-18 10:04 | Outpatient (CLI) | payer MEDICARE, SELFPAY ==
--- NOTE | 2021-06-18 12:31 | NEURO ---
NCS and/or EMG Patient Report Ordering Doctor: Ron Zuniga DATE OF SERVICE: 06/18/21 Indication: Progressive lower extremity weakness, numbness and gait instability. History of neurogenic bladder. He was recently noted to have severe cervical canal compression. He is being evaluated by neurosurgery for potential decompression. Evaluate for a superimposed peripheral polyneuropathy that could be contributing to his immobility. Findings: Nerve conduction studies were performed in the right and left lower extremities. The right peroneal motor study recording the extensor digitorum brevis showed a normal amplitude, normal distal latency and borderline conduction velocity. No conduction block or focal slowing was present across the fibular neck (though supramaximal stimulation could not be achieved below the fibular head). The right tibial motor study recording the abductor hallucis brevis showed a borderline amplitude, normal distal latency and normal conduction velocity. Right sural sensory response showed a borderline normal amplitude and borderline conduction velocity. Right superficial peroneal sensory response showed a normal amplitude and borderline conduction velocity. The left peroneal motor study recording the extensor digitorum brevis showed a normal amplitude, normal distal latency and borderline conduction velocity. No conduction block or focal slowing was present across the fibular neck. The left tibial motor study recording the abductor hallucis brevis showed a normal amplitude, normal distal latency and borderline conduction velocity. Left sural sensory response showed a normal amplitude and borderline conduction velocity. Left superficial peroneal sensory response showed a normal amplitude and slightly reduced conduction velocity. The right radial sensory response recording over the extensor snuff box showed a borderline amplitude, normal latency and normal conduction velocity. Needle EMG of the left lower extremity muscles was performed. The lumbar paraspinal muscles were not sampled due to the patient's history of prior lumbar surgery. No denervation was present in any sampled muscle. Motor units in the tibialis anterior and vastus medialis were slightly large amplitude and long duration. All other motor unit morphology and recruitment patterns were normal. Needle EMG of the right lower extremity was omitted due to the paucity of findings on the left. Impression: This is a mildly abnormal study. There is no definitive electrophysiologic evidence of peripheral polyneuropathy in the lower extremities. The borderline conduction velocities, in the absence of other pathological findings, are felt to be a reflection of cool limb temperatures. The mildly enlarged motor units seen in the left lower extremity are of unclear etiology, but may be chronic sequela of the patient's remote lumbar radiculopathy. There is no active denervation of any sampled muscle to suggest an ongoing lower motor neuron injury. Marvin Arellano D.O. Multi Select Codes Neurology Neurology Interp Codes: 54589-56 [facility] [place] done w/nerv tst vila (interp) and 14873-18 [facility] cndj test 9-10 studies (interp)
== END ==
PROVIDERS: PCP Nurse Practitioner Family; Referring Provider Psychiatry & Neurology Neurology; Visit Provider Psychiatry & Neurology Neurology
DX: G62.89 Other specified polyneuropathies (principal); E55.9 Vitamin D deficiency, unspecified
CPT/HCPCS: 95885; 95911

== ENCOUNTER → 2024-03-02 | Outpatient (CLI) | payer MEDICARE, SELFPAY ==
--- NOTE | 2024-03-02 08:18 | ECHOCS_ITS ---
Reason For Study: Dyspnea Procedure This was a 2D Doppler, Color Flow transthoracic echocardiogram. Myocardial strain analysis was performed in this exam to aid in the assessment of cardiac function. Contrast injection was performed. Exam performed in department. Left Ventricle Normal LV size. The global longitudinal strain = -13.7% (abnormal). The estimated ejection fraction is 55 %. No evidence for diastolic dysfunction. No regional wall motion abnormalities noted. Right Ventricle Normal RV size. Normal systolic function. Atria The left and right atria are normal. No doppler evidence for ASD. Bubble contrast study negative for right to left interatrial shunt. Mitral Valve There is no mitral valve stenosis. No mitral valve insufficiency. Tricuspid Valve There is no tricuspid stenosis. Unable to estimate RV systolic pressure due to inadequate jet, pulmonary artery pressure probably normal. Aortic Valve Trisinus/trileaflet aortic valve. There is no aortic stenosis. No aortic valve insufficiency. Pulmonic Valve There is no pulmonic valvular stenosis. No pulmonic valve insufficiency. Great Vessels Normal aortic root. Pericardium/Pleural No pericardial effusion. Medication Performed a rapid injection of agitated mix of 9 cc saline and 1cc air to assess for atrial septal defect. Diluted definity 2ml given slow IV push to enhance endocardial definition. MMode/2D Measurements & Calculations LVIDd: 4.6 cm IVSd: 1.6 cm Ao root diam: 3.5 cm LVIDs: 3.5 cm LVPWd: 1.5 cm RVDd: 3.4 cm FS: 23.2 % LAV(MOD-bp): 29.1 ml LVAd ap4: 37.6 cm2 SV(MOD-sp4): 61.3 ml LAV(MOD-bp) Indexed: 13.4 ml/m2 LVLd ap4: 8.9 cm LAV(MOD-sp2): 27.8 ml EDV(MOD-sp4): 128.7 ml LAV(MOD-sp4): 27.7 ml EDV(sp4-el): 134.4 ml LVAs ap4: 25.8 cm2 LVLs ap4: 8.0 cm ESV(MOD-sp4): 67.4 ml ESV(sp4-el): 70.9 ml EF(MOD-sp4): 47.6 % EF(sp4-el): 47.2 % SV(sp4-el): 63.5 ml LA A4 area: 12.5 cm2 LA dimension(2D): 3.8 cm RA A4 area: 18.5 cm2 TAPSE: 1.8 cm Time Measurements MV dec time: 0.33 sec Doppler Measurements & Calculations MV E max zane: 56.0 cm/sec Lat Peak E' Zane: 5.9 cm/sec Med Peak E' Zane: 5.5 cm/sec MV A max zane: 94.2 cm/sec E/E' lat: 9.6 E/E' med: 10.1 MV E/A: 0.59 MV dec slope: 169.7 cm/sec2 Ao V2 max: 135.3 cm/sec LV V1 max: 109.9 cm/sec Ao max P.3 mmHg LV V1 max P.8 mmHg Ao V2 mean: 91.7 cm/sec Ao mean P.9 mmHg Ao V2 VTI: 29.8 cm PA V2 max: 87.4 cm/sec ECHO/Echo Complete W/ Contrast Interpretation Summary The estimated ejection fraction is 55 %. No evidence for diastolic dysfunction. Ordering Physician: Laya Jacome Referring Physician: Yris Grigsby Performed By: Yelena Alfredo, RACHEL, RVT
== END | disposition home or self-care (01) ==
PROVIDERS: PCP Internal Medicine; Referring Provider Physician Assistant Medical; Visit Provider Physician Assistant Medical
DX: R06.00 Dyspnea, unspecified (principal); R60.0 Localized edema
CPT/HCPCS: 93306; Q9957; A4216; C8929